=== PATIENT | male | born 1975 | race Caucasian/White ===

== ENCOUNTER 2019-06-30 12:57 | Emergency (ER) | payer OTHER ==
[2019-06-30] MEDS ORDERED: PROTONIX 40 MG IV IV ONE ×2 (14:13→14:23)
[2019-06-30] MEDS ORDERED: Hydromorphone 1 mg/ml Ampule IV ONE ×2 (14:13→18:39)
[2019-06-30] MEDS ORDERED: Sodium Chloride 0.9% 1000 ML 1,000 ML IV STA (14:13)
[2019-06-30] MEDS ORDERED: TORAdol 30 mg Injection IV ONE (14:13)
--- NOTE | 2019-06-30 14:13 | ERPHSYRPT ---
- History of Present Illness Patient Subjective Stated Complaint: Pt states "I was seen at the [facility] two weeks ago and they told me I had gout, I told them it was different then gout and my knees were swollen and I needed help and they told me to take the meds they gave me and I have not been able to move or walk for the last two days." Triage Nursing Assessment: Pt presented alert and oriented X 3, skin pwd. Pt gasping and grunting. When pt moves, he grunts and groans. PT grasping back and both knees. Physician History: Is a old male who is normally seen at the [facility] who presents with a history of gout and a diagnosis of gout made at the [facility]. He started with gout in the left foot that was treated with steroids allopurinol and tramadol and did improve. However he then developed pain in his left knee with swelling he has been unable to walk for 2 days that was diagnosed as gout as well. He now also has some pain in the left hip and lower back. Allergies/Adverse Reactions: No Known Drug Allergies Allergy (Verified 06/30/19 13:05) Home Medications: Colchicine 2.4 mg PO DAILY 06/30/19 [History] Prednisone 10 mg [Deltasone 10 mg] 10 mg PO UD 06/30/19 [History] Tramadol HCl 50 mg [Ultram 50 mg] 50 mg PO Q8H PRN PRN 06/30/19 [History] Hx Tetanus, Diphtheria Vaccination/Date Given: No Hx Influenza Vaccination/Date Given: Yes Hx Pneumococcal Vaccination/Date Given: No Immunizations Up to Date: Yes - Past Medical History Pertinent Past Medical History: Yes Neurological History: No Pertinent History Cardiac History: High Cholesterol, Hypertension Respiratory History: No Pertinent History Endocrine Medical History: No Pertinent History Musculoskeletal History: Fractures - Past Surgical History Past Surgical History: Yes Other Surgical History: jessica. right bicep - Social History Smoking Status: Former smoker Exposure to second hand smoke: Yes Drug Use: none Patient Lives Alone: No - Nursing Vital Signs Nursing Vital Signs: Initial Vital Signs Temperature 98.3 F 06/30/19 12:58 Pulse Rate 114 H 06/30/19 12:58 Respiratory Rate 24 06/30/19 12:58 Blood Pressure 157/121 06/30/19 12:58 O2 Sat by Pulse Oximetry 97 06/30/19 12:58 Pain Scale Pain Intensity [Right Knee] 8 Pain Intensity 2 - Physical Exam SpO2: 95 - Course Nursing assessment & vital signs reviewed: Yes Ordered Tests: Active Orders 24 hr Category Date Time Status IV Insertion STAT Care 06/30/19 14:13 Active CBC W DIFF Stat Lab 06/30/19 15:45 Completed CMP Stat Lab 06/30/19 15:45 Completed Lactic Acid Stat Lab 06/30/19 15:45 Received PROTIME WITH INR Stat Lab 06/30/19 15:45 Received SED RATE [Erythrocyte Sedimentation Rate] Stat Lab 06/30/19 15:45 Received UA W/RFX UR CULTURE Stat Lab 06/30/19 14:13 Uncollected Uric Acid Stat Lab 06/30/19 15:45 Received Medication Summary Discontinued Medications Generic Name Dose Route Start Last Admin Trade Name Freq PRN Reason Stop Dose Admin Hydromorphone HCl 2 mg 06/30/19 14:13 06/30/19 14:29 Hydromorphone 1 Mg/Ml Ampule IV 06/30/19 14:14 2 mg STAT ONE Administration Hydromorphone HCl Confirm 06/30/19 14:24 Hydromorphone 1 Mg/Ml Ampule Administered 06/30/19 14:25 Dose 2 mg .ROUTE .STK-MED ONE Sodium Chloride 1,000 mls @ 999 mls/hr 06/30/19 14:13 06/30/19 15:29 Sodium Chloride 0.9% 1000 Ml IV 06/30/19 15:13 Infused .Q1H1M STA Infusion Sodium Chloride Confirm 06/30/19 14:24 Sodium Chloride 0.9% 1000 Ml Administered 06/30/19 14:25 Dose 1,000 mls @ ud .ROUTE .STK-MED ONE Ketorolac Tromethamine 30 mg 06/30/19 14:13 06/30/19 14:29 Toradol 30 Mg Injection IV 06/30/19 14:14 30 mg STAT ONE Administration Ketorolac Tromethamine Confirm 06/30/19 14:23 Toradol 30 Mg Injection Administered 06/30/19 14:24 Dose 30 mg .ROUTE .STK-MED ONE Pantoprazole Sodium 40 mg 06/30/19 14:13 06/30/19 14:29 Protonix 40 Mg Iv IV 06/30/19 14:14 40 mg STAT ONE Administration Pantoprazole Sodium Confirm 06/30/19 14:23 Protonix 40 Mg Iv Administered 06/30/19 14:24 Dose 40 mg IV .STK-MED ONE Lab/Rad Data: Laboratory Result Diagrams 06/30/19 15:45 06/30/19 15:45 Laboratory Results 06/30/19 06/30/19 Range/Units 15:45 15:45 WBC 14.4 H (4.0-10.5) K/mm3 RBC 4.33 (4.1-5.6) M/mm3 Hgb 13.3 (12.5-18.0) gm/dl Hct 39.1 L (42-50) % MCV 90.3 (78-100) fl MCH 30.7 (26-32) pg MCHC 34.0 (32-36) g/dl RDW 13.2 (11.5-14.0) % Plt Count 243 (150-450) K/mm3 MPV 9.7 (7.5-11.0) fl Gran % 83.0 H (36.0-66.0) % Eos # (Auto) 0.01 (0-0.5) Absolute Lymphs (auto) 0.88 L (1.0-4.6) Absolute Monos (auto) 1.54 H (0.0-1.3) Lymphocytes % 6.1 L (24.0-44.0) % Monocytes % 10.7 (0.0-12.0) % Eosinophils % 0.1 (0.00-5.0) % Basophils % 0.1 (0.0-0.4) % Absolute Granulocytes 11.96 H (1.4-6.9) Basophils # 0.02 (0-0.4) Sodium 133 L (137-145) mmol/L Potassium 4.4 (3.5-5.1) mmol/L Chloride 102 (98-107) mmol/L Carbon Dioxide 23 (22-30) mmol/L Anion Gap 13.4 (5-15) MEQ/L BUN 24 H (9-20) mg/dL Creatinine 1.07 (0.66-1.25) mg/dL Estimated GFR > 60.0 ML/MIN Glucose 125 H (74-106) mg/dL Calcium 9.1 (8.4-10.2) mg/dL Total Bilirubin 1.20 (0.2-1.3) mg/dL AST 37 (17-59) U/L ALT 51 H (0-50) U/L Alkaline Phosphatase 140 H (38-126) U/L Serum Total Protein 7.8 (6.3-8.2) g/dL Albumin 4.1 (3.5-5.0) g/dL Slides for Path Review YES - Progress Progress: unchanged - Departure Departure Disposition: Transfer (Patient will transfer to the [facility] for continuity of care purposes he will be admitted at the [facility] to Dr. [place]) Clinical Impression: Gout Condition: Stable Critical Care Time: No Referrals: FLORENTINO BRITO MD [NON-STAFF PHY W/O PRIVILEGES] -
[2019-06-30] MEDS ORDERED: TORAdol 30 mg Injection ONE (14:23)
[2019-06-30] MEDS ORDERED: Sodium Chloride 0.9% 1000 ML 1,000 ML ONE (14:24)
[2019-06-30] MEDS ORDERED: Hydromorphone 1 mg/ml Ampule ONE ×2 (14:24→18:41)
[2019-06-30 16:14] LABS: Absolute Neutrophil Ct (ANC) 11.96 (1.4-6.9); BASOPHIL % 0.1 % (0.0-0.4); Basophil (Absolute #) 0.02 (0-0.4); Eosinophil % 0.1 % (0.00-5.0); Eosinophil (Absolute #) 0.01 (0-0.5); Hematocrit 39.1 % (42-50); Hemoglobin 13.3 gm/dl (12.5-18.0); Lymphocyte (Absolute #) 0.88 (1.0-4.6); Lymphocytes % 6.1 % (24.0-44.0); Mean Cell Volume 90.3 fl (78-100); Mean Corpuscular Hemoglobin 30.7 pg (26-32); Mean Platelet Volume 9.7 fl (7.5-11.0); Monocyte (Absolute #) 1.54 (0.0-1.3); Monocytes % 10.7 % (0.0-12.0); Platelet Count 243 K/mm3 (150-450); Red Blood Count 4.33 M/mm3 (4.1-5.6); Red Cell Distribution Width 13.2 % (11.5-14.0); White Blood Count 14.4 K/mm3 (4.0-10.5)
[2019-06-30 16:17] LABS: INR 1.33 (0.8-3.0); PROTIME 15.1 SECONDS (8.83-12.87)
[2019-06-30 16:21] LABS: ALBUMIN 4.1 g/dL (3.5-5.0); ALKALINE PHOSPHATASE 140 U/L (38-126); ANION GAP 13.4 MEQ/L (5-15); BLOOD UREA NITROGEN 24 mg/dL (9-20); CHLORIDE 102 mmol/L (98-107); Calcium 9.1 mg/dL (8.4-10.2); Carbon Dioxide 23 mmol/L (22-30); Creatinine 1 1.07 mg/dL (0.66-1.25); Glucose 125 mg/dL (74-106); Potassium 4.4 mmol/L (3.5-5.1); SGOT/AST 37 U/L (17-59); SGPT/ALT 51 U/L (0-50); SODIUM 133 mmol/L (137-145); Total Protein 7.8 g/dL (6.3-8.2)
[2019-06-30 16:35] LABS: Slide Review 1 YES
[2019-06-30 17:34] LABS: Appearance CLEAR (CLEAR); Bilirubin NEGATIVE (NEGATIVE); Blood NEGATIVE Ery/ul (0-5); Glucose NEGATIVE (NEGATIVE); Ketones NEGATIVE (NEGATIVE); Leukocyte Esterase NEGATIVE (NEGATIVE); Mucus SLIGHT /HPF (NEGATIVE); Nitrite NEGATIVE (NEGATIVE); Protein,Urine Dip NEGATIVE (Negative); Specific Gravity 1.023 (1.005-1.025); Urobilinogen 2 mg/dL (0-1); WBC 0-2 /HPF (0-5)
[2019-06-30 18:49] VITALS: BP 118/70; PULSE 90; O2SAT 98
== END 2019-06-30 19:11 | disposition short-term general hospital (02) ==
LOC: ED 12:57
DX: M10.9 Gout, unspecified (principal); M25.552 Pain in left hip; M54.5 Low back pain; Z79.899 Other long term (current) drug therapy; E78.00 Pure hypercholesterolemia, unspecified; I10 Essential (primary) hypertension
CPT/HCPCS: 36000; 36415; 80053; 81001; 83605; 84550; 85025; 85610; 85652; 96360; 96374; 96375; 96376; 99285; J1170; J1885

== ENCOUNTER 2022-02-08 10:23 | Emergency (ER) | payer OTHER ==
[2022-02-08] MEDS ORDERED: CLONIDINE 0.1 MG TABLET PO ONE (10:34)
[2022-02-08] MEDS ORDERED: NORVASC 5 MG PO ONE (10:34)
[2022-02-08] MEDS ORDERED: CLONIDINE 0.1 MG TABLET ONE (10:38)
[2022-02-08] MEDS ORDERED: NORVASC 5 MG ONE (10:39)
[2022-02-08] MEDS ORDERED: Sodium Chloride 0.9% 1000 ML 1,000 ML ONE (10:40)
--- NOTE | 2022-02-08 10:44 | ERPHSYRPT ---
- History of Present Illness Time Seen by Provider: 02/08/22 10:38 Source: patient, family Exam Limitations: no limitations Physician History: Patient is a 46-year-old male who presents with a complaint of high blood pressure readings at home. He has been as high as 174/117 at home. He is on hydrochlorothiazide for his blood pressure which he admits he is not particu larly taking on a regular basis. He is only complaining of any discomfort is a bad headache since last night. He admits that yesterday he had a markedly increased salt intake he was drinking beer tomato juice and salt throughout the day yesterday. Timing/Duration: yesterday Activities at Onset: none Quality: other (Severe headache) Modifying Factors: Improves With: nothing Nitro Today/Relief: no nitro taken today Aspirin Treatment Today: no aspirin today Associated Symptoms: headaches Prior Chest Pain/Cardiac Workup: no prior cardiac workup Allergies/Adverse Reactions: [id number] Reductase Inhibitor Allergy (Verified 02/08/22 10:29) Home Medications: hydroCHLOROthiazide [Hydrochlorothiazide] 1 tab PO DAILY 02/08/22 [History] Hx Tetanus, Diphtheria Vaccination/Date Given: No Hx Influenza Vaccination/Date Given: Yes Hx Pneumococcal Vaccination/Date Given: No - Review of Systems Constitutional: No Fever, No Chills Eyes: No Symptoms Ears, Nose, & Throat: No Symptoms Respiratory: No Cough, No Dyspnea Cardiac: No Chest Pain, No Edema, No Syncope Abdominal/Gastrointestinal: No Abdominal Pain, No Nausea, No Vomiting, No Diarrhea Genitourinary Symptoms: No Dysuria Musculoskeletal: No Back Pain, No Neck Pain Skin: No Rash Neurological: Headache, No Dizziness, No Focal Weakness, No Sensory Changes Psychological: No Symptoms Endocrine: No Symptoms All Other Systems: Reviewed and Negative - Past Medical History Pertinent Past Medical History: Yes Neurological History: No Pertinent History Cardiac History: High Cholesterol, Hypertension Respiratory History: No Pertinent History Endocrine Medical History: No Pertinent History Musculoskeletal History: Fractures - Past Surgical History Past Surgical History: Yes Other Surgical History: jessica. right bicep - Social History Smoking Status: Former smoker Exposure to second hand smoke: Yes Drug Use: none Patient Lives Alone: No - Nursing Vital Signs Nursing Vital Signs: Initial Vital Signs Temperature 96.9 F 02/08/22 10:35 Pulse Rate 86 02/08/22 10:35 Respiratory Rate 18 02/08/22 10:35 Blood Pressure 168/109 02/08/22 10:35 O2 Sat by Pulse Oximetry 98 02/08/22 10:35 Pain Scale Pain Intensity 5 - Physical Exam General Appearance: no apparent distress, alert Eye Exam: PERRL/EOMI, eyes nml inspection Ears, Nose, Throat Exam: normal ENT inspection, moist mucous membranes Neck Exam: normal inspection, non-tender, supple Respiratory Exam: normal breath sounds, lungs clear, No respiratory distress Cardiovascular Exam: regular rate/rhythm, normal heart sounds, No edema Gastrointestinal/Abdomen Exam: soft, No tenderness, No mass Back Exam: normal inspection, No CVA tenderness, No vertebral tenderness Extremity Exam: normal inspection, normal range of motion Neurologic Exam: alert, oriented x 3, cooperative, normal mood/affect, nml cerebellar function, sensation nml, No motor deficits Skin Exam: normal color, warm, dry Lymphatic Exam: No adenopathy - Course EKG Interpreted by Me: RATE ([id number]), Sinus Rhythm, Left [place] Deviation, NORMAL INTERVALS, Non-specific ST Changes - Radiology Exams Chest X-ray Interpretation: Interpreted by me, Negative Ordered Tests: Active Orders 24 hr Category Date Time Status EKG-ER Only STAT Care 02/08/22 10:34 Active IV Insertion STAT Care 02/08/22 10:34 Active CHEST 1 VIEW (PORTABLE) Stat Exams 02/08/22 10:35 Taken CBC W DIFF Stat Lab 02/08/22 10:35 Received CMP Stat Lab 02/08/22 10:35 Completed MAGNESIUM Stat Lab 02/08/22 10:35 Completed NT PRO BNP Stat Lab 02/08/22 10:35 Completed TROPONIN Q4H Lab 02/08/22 10:35 Completed TROPONIN Q4H Lab 02/08/22 14:45 Ordered TROPONIN Q4H Lab 02/08/22 18:45 Ordered UA W/RFX CULTURE Stat Lab 02/08/22 10:38 Completed Urine Triage Profile Stat Lab 02/08/22 10:38 Completed Medication Summary Generic Name Dose Route Start Last Admin Trade Name Freq PRN Reason Stop Dose Admin Sodium Chloride 1,000 mls @ 50 mls/hr 02/08/22 10:45 02/08/22 10:40 Sodium Chloride 0.9% 1000 Ml IV 03/10/22 10:44 50 mls/hr .Q20H JESSICA Administration Losartan Potassium 50 mg 02/09/22 10:00 02/08/22 10:59 Losartan Potassium 50 Mg Tablet PO 03/11/22 09:59 50 mg DAILY JESSICA Administration Discontinued Medications Generic Name Dose Route Start Last Admin Trade Name Doreen PRN Reason Stop Dose Admin Amlodipine Besylate 5 mg 02/08/22 10:34 02/08/22 10:39 Amlodipine Besylate 5 Mg Tablet PO 02/08/22 10:35 5 mg STAT ONE Administration Amlodipine Besylate Confirm 02/08/22 10:39 Amlodipine Besylate 5 Mg Tablet Administered 02/08/22 10:40 Dose 5 mg .ROUTE .STK-MED ONE Clonidine 0.1 mg 02/08/22 10:34 02/08/22 10:39 Clonidine Hcl 0.1 Mg Tablet PO 02/08/22 10:35 0.1 mg STAT ONE Administration Clonidine Confirm 02/08/22 10:38 Clonidine Hcl 0.1 Mg Tablet Administered 02/08/22 10:39 Dose 0.1 mg .ROUTE .STK-MED ONE Lab/Rad Data: Laboratory Result Diagrams 02/08/22 10:35 Laboratory Results 02/08/22 02/08/22 02/08/22 Range/Units 10:38 10:38 10:35 Sodium (137-145) mmol/L Potassium (3.5-5.1) mmol/L Chloride (98-107) mmol/L Carbon Dioxide (22-30) mmol/L Anion Gap (5-15) MEQ/L BUN (9-20) mg/dL Creatinine (0.66-1.25) mg/dL Estimated GFR ML/MIN Glucose (74-106) mg/dL Calcium (8.4-10.2) mg/dL Magnesium (1.6-2.3) mg/dL Total Bilirubin (0.2-1.3) mg/dL AST (17-59) U/L ALT (0-50) U/L Alkaline Phosphatase (38-126) U/L Troponin I < 0.012 (0.000-0.034) ng/mL NT-Pro-B Natriuret Pep (0-450) pg/mL Serum Total Protein (6.3-8.2) g/dL Albumin (3.5-5.0) g/dL Urinalys Dipstick Clnc MAIN LAB Urine Color YELLOW (YELLOW) Urine Appearance CLEAR (CLEAR) Urine pH 7.5 (5-6) Ur Specific [place] 1.015 (1.005-1.025) POC Urine Protein Conf NEGATIVE (Negative) Urine Ketones NEGATIVE (NEGATIVE) Urine Nitrite NEGATIVE (NEGATIVE) Urine Bilirubin NEGATIVE (NEGATIVE) Urine Urobilinogen 0.2 (0-1) mg/dL Urine Leukocytes NEGATIVE (NEGATIVE) Urine WBC (Auto) NONE (0-5) /HPF Urine RBC (Auto) NONE (0-2) /HPF U Epithel Cells (Auto) NONE (FEW) /HPF Urine Bacteria (Auto) NONE (NEGATIVE) /HPF Urine RBC NEGATIVE (0-5) Tree/ul Urine Mucus (Auto) SLIGHT (NEGATIVE) /HPF Ur Culture Indicated? NO Urine Glucose NEGATIVE (NEGATIVE) mg/dL Urine Opiates Level NEGATIVE (NEGATIVE) Ur Methadone NEGATIVE (NEGATIVE) Urine Barbiturates NEGATIVE (NEGATIVE) Ur Phencyclidine (PCP) NEGATIVE (NEGATIVE) Urine Amphetamine NEGATIVE (NEGATIVE) U Benzodiazepine Level NEGATIVE (NEGATIVE) Urine Cocaine NEGATIVE (NEGATIVE) Urine Marijuana (THC) NEGATIVE (NEGATIVE) 02/08/22 Range/Units 10:35 Sodium 135 L (137-145) mmol/L Potassium 4.4 (3.5-5.1) mmol/L Chloride 103 (98-107) mmol/L Carbon Dioxide 22 (22-30) mmol/L Anion Gap 13.8 (5-15) MEQ/L BUN 14 (9-20) mg/dL Creatinine 0.86 (0.66-1.25) mg/dL Estimated GFR > 60.0 ML/MIN Glucose 116 H (74-106) mg/dL Calcium 9.4 (8.4-10.2) mg/dL Magnesium 2.0 (1.6-2.3) mg/dL Total Bilirubin 0.60 (0.2-1.3) mg/dL AST 88 H (17-59) U/L ALT 89 H (0-50) U/L Alkaline Phosphatase 102 (38-126) U/L Troponin I (0.000-0.034) ng/mL NT-Pro-B Natriuret Pep 26.9 (0-450) pg/mL Serum Total Protein 8.2 (6.3-8.2) g/dL Albumin 4.8 (3.5-5.0) g/dL Urinalys Dipstick Clnc Urine Color (YELLOW) Urine Appearance (CLEAR) Urine pH (5-6) Ur Specific [place] (1.005-1.025) POC Urine Protein Conf (Negative) Urine Ketones (NEGATIVE) Urine Nitrite (NEGATIVE) Urine Bilirubin (NEGATIVE) Urine Urobilinogen (0-1) mg/dL Urine Leukocytes (NEGATIVE) Urine WBC (Auto) (0-5) /HPF Urine RBC (Auto) (0-2) /HPF U Epithel Cells (Auto) (FEW) /HPF Urine Bacteria (Auto) (NEGATIVE) /HPF Urine RBC (0-5) Tree/ul Urine Mucus (Auto) (NEGATIVE) /HPF Ur Culture Indicated? Urine Glucose (NEGATIVE) mg/dL Urine Opiates Level (NEGATIVE) Ur Methadone (NEGATIVE) Urine Barbiturates (NEGATIVE) Ur Phencyclidine (PCP) (NEGATIVE) Urine Amphetamine (NEGATIVE) U Benzodiazepine Level (NEGATIVE) Urine Cocaine (NEGATIVE) Urine Marijuana (THC) (NEGATIVE) - Progress Progress: improved Air Movement: good Blood Culture(s) Obtained: No Antibiotics given: No - Departure Departure Disposition: Home Clinical Impression: Hypertension Condition: Stable Critical Care Time: No Referrals: TOD MCCRAY [NON-STAFF PHY W/O PRIVILEGES] - Follow up/PCP as directed Instructions: Malignant Hypertension (DC) Prescriptions: Losartan Potassium 50 mg [Cozaar 50 MG] 50 mg PO DAILY 30 Days #30 tablet Hydrochlorothiazide 25 mg [hydroDIURIL 25 MG] 25 mg PO DAILY 30 Days #30 tablet
[2022-02-08] MEDS ORDERED: Sodium Chloride 0.9% 1000 ML 1,000 ML IV SCH (10:45)
[2022-02-08 11:14] LABS: Amphetamine,Urine NEGATIVE (NEGATIVE); Barbiturate,Urine NEGATIVE (NEGATIVE); Benzodiazepine,Urine NEGATIVE (NEGATIVE); Cocaine,Urine NEGATIVE (NEGATIVE); Methadone,Urine NEGATIVE (NEGATIVE); Opiate,Urine NEGATIVE (NEGATIVE); PCP,Urine NEGATIVE (NEGATIVE); THC,Urine NEGATIVE (NEGATIVE)
[2022-02-08 11:15] LABS: ALBUMIN 4.8 g/dL (3.5-5.0); ALKALINE PHOSPHATASE 102 U/L (38-126); ANION GAP 13.8 MEQ/L (5-15); BLOOD UREA NITROGEN 14 mg/dL (9-20); CHLORIDE 103 mmol/L (98-107); Calcium 9.4 mg/dL (8.4-10.2); Carbon Dioxide 22 mmol/L (22-30); Creatinine 1 0.86 mg/dL (0.66-1.25); EST GLOMERULAR FILTRATION RATE > 60.0 ML/MIN; Glucose 116 mg/dL (74-106); NT PRO BNP 26.9 pg/mL (0-450); Potassium 4.4 mmol/L (3.5-5.1); SGOT/AST 88 U/L (17-59); SGPT/ALT 89 U/L (0-50); SODIUM 135 mmol/L (137-145); Total Protein 8.2 g/dL (6.3-8.2)
[2022-02-08 11:18] LABS: Appearance CLEAR (CLEAR); Bilirubin NEGATIVE (NEGATIVE); Glucose NEGATIVE (NEGATIVE); Ketones NEGATIVE (NEGATIVE); Mucus SLIGHT /HPF (NEGATIVE)
[2022-02-08 11:19] LABS: Dipstick done @ ? MAIN LAB; Nitrite NEGATIVE (NEGATIVE); Ph 7.5 (5-6); Protein,Urine Dip NEGATIVE (Negative); RBC NEGATIVE Ery/ul (0-5); Specific Gravity 1.015 (1.005-1.025); Urine Cultured Indicated? NO; Urobilinogen 0.2 mg/dL (0-1)
[2022-02-08 11:29] VITALS: O2SAT 94
[2022-02-08 11:53] LABS: Absolute Neutrophil Ct (ANC) 2.36 x10^3/uL (1.4-6.9); Basophil (Absolute #) 0.05 x10^3/uL (0-0.4); Eosinophil % 5.4 % (0.00-5.0); Eosinophil (Absolute #) 0.29 x10^3/uL (0-0.5); Hemoglobin 15.2 g/dL (12.5-18.0); Lymphocyte (Absolute #) 2.14 x10^3/uL (1.0-4.6); Lymphocytes % 39.5 % (24.0-44.0); Mean Cell Volume 89.6 fL (78-100); Mean Corpuscular Hemoglobin 30.3 pg (26-32); Mean Corpuscular Hgb Concent. 33.8 g/dL (32-36); Mean Platelet Volume 10.6 fL (7.5-11.0); Monocyte (Absolute #) 0.56 x10^3/uL (0.0-1.3); Monocytes % 10.3 % (0.0-12.0); Neutrophil % 43.5 % (36.0-66.0); Platelet Count 148 x10^3/uL (150-450); Red Blood Count 5.02 x10^6/uL (4.1-5.6); Red Cell Distribution Width 12.1 % (11.5-14.0); White Blood Count 5.4 x10^3/uL (4.0-10.5)
[2022-02-08 12:31] VITALS: BP 150/95; PULSE 72
--- NOTE | 2022-02-08 19:18 | XRAY ---
Indication: Hypertension. Comparison: None Portable chest demonstrates normal heart and lungs. Bony thorax intact with minimal dextroscoliosis.
[2022-02-09] MEDS ORDERED: Cozaar 50 MG PO SCH (10:00)
== END 2022-02-08 13:05 | disposition home or self-care (01) ==
LOC: ED 10:23
DX: I10 Essential (primary) hypertension (principal); R51.9 Headache, unspecified; E78.5 Hyperlipidemia, unspecified; Z79.899 Other long term (current) drug therapy
CPT/HCPCS: 36000; 36415; 71045; 80053; 80307; 81015; 83735; 83880; 84484; 85025; 93005; 99284; A9270-GY

== ENCOUNTER 2022-06-25 09:47 | Emergency (ER) | payer OTHER ==
[2022-06-25] MEDS ORDERED: DECADRON 10MG INJ. IM ONE (10:08)
[2022-06-25] MEDS ORDERED: TORAdol 30 mg Injection IM ONE (10:08)
--- NOTE | 2022-06-25 10:15 | ERPHSYRPT ---
- History of Present Illness Time Seen by Provider: 06/25/22 10:16 Source: patient Exam Limitations: no limitations Patient Subjective Stated Complaint: Pt states "I was working on a car in [place] and I am not sure if I hit it or injured it but I have horrible pain in my right wrist and it is swollen. I went to the [facility] and they are trying to treat me for gout but the pain is still there." Triage Nursing Assessment: PT presented alert and oriented X 3, skin pwd. PT ambulates with an upright steady gait, able to speak in clear full sentences. Pt right wrist slightly swollen and tender. Physician History: Patient is a 47-year-old male presents to our ED for evaluation of pain to his right wrist. Patient was working on a vehicle on Thursday 3 days ago. Patient injured his wrist while using a screwdriver. Patient went to the [facility] yesterday. Patient was evaluated. X-rays were obtained. No fractures or dislocations per patient. Patient has a history of gout. [facility]. Patient was started indomethacin and colchicine. Patient was issued a wrist splint for pain control and comfort. Patient is not wearing his wrist splint as he states the wrist but they gave him is too small. No interval injuries. No fever. Pain described as an ache that is localized to the right forearm musculature as well as wrist. No wrist pain shoulder pain. Patient otherwise feels well. He voices no other complaints or concerns at this time. Portions of this note were created with voice recognition technology. There may be grammatical, spelling, punctuation or sound alike errors Occurred: days ago (3 days ago) Method of Injury: other (Working on vehicle) Quality: constant Severity of Pain-Max: moderate Severity of Pain-Current: mild Extremities Pain Location: wrist: right Modifying Factors: Improves With: movement Associated Symptoms: none, No fever Allergies/Adverse Reactions: [id number] Reductase Inhibitor Allergy (Verified 02/08/22 10:29) Home Medications: hydroCHLOROthiazide [Hydrochlorothiazide] 1 tab PO DAILY 02/08/22 [History] Hx Tetanus, Diphtheria Vaccination/Date Given: No Hx Influenza Vaccination/Date Given: Yes Hx Pneumococcal Vaccination/Date Given: No Immunizations Up to Date: Yes Travel Risk - International Travel Have you traveled outside of the country in past 3 weeks: No - Coronavirus Screening Are you exhibiting any of the following symptoms?: No Close contact with a COVID-19 positive Pt in past 14-21 Days: No - Vaccine Status Have you recieved a Covid-19 vaccination: No - Review of Systems Constitutional: No Symptoms, No Fever, No Chills Eyes: No Symptoms Ears, Nose, & Throat: No Symptoms Respiratory: No Symptoms, No Cough, No Dyspnea Cardiac: No Symptoms, No Chest Pain, No Edema, No Syncope Abdominal/Gastrointestinal: No Symptoms, No Abdominal Pain, No Nausea, No Vomiting, No Diarrhea Genitourinary Symptoms: No Symptoms, No Dysuria Musculoskeletal: No Symptoms, No Back Pain, No Neck Pain Skin: No Symptoms, No Rash Neurological: No Symptoms, No Dizziness, No Focal Weakness, No Sensory Changes Psychological: No Symptoms Endocrine: No Symptoms Hematologic/Lymphatic: No Symptoms Immunological/Allergic: No Symptoms All Other Systems: Reviewed and Negative - Past Medical History Pertinent Past Medical History: Yes Neurological History: No Pertinent History Cardiac History: High Cholesterol, Hypertension Respiratory History: No Pertinent History Endocrine Medical History: No Pertinent History Musculoskeletal History: Fractures - Past Surgical History Past Surgical History: Yes Other Surgical History: jessica. right bicep - Social History Smoking Status: Former smoker Exposure to second hand smoke: Yes Drug Use: none Patient Lives Alone: No - Nursing Vital Signs Nursing Vital Signs: Initial Vital Signs Temperature 97.7 F 06/25/22 09:53 Pulse Rate 99 H 06/25/22 09:53 Respiratory Rate 22 06/25/22 09:53 Blood Pressure 157/99 06/25/22 09:53 Pain Scale Pain Intensity 6 - Physical Exam General Appearance: no apparent distress, alert Eyes, Ears, Nose, Throat Exam: moist mucous membranes Neck Exam: non-tender, supple Cardiovascular/Respiratory Exam: chest non-tender, normal breath sounds, regular rate/rhythm, no respiratory distress Abdominal Exam: non-tender, soft, No guarding Back Exam: normal inspection, No vertebral tenderness Shoulder Exam: normal inspection, non-tender, no evidence of injury, normal ROM Elbow/Forearm Exam: normal inspection, non-tender, no evidence of injury, normal ROM Wrist Exam: pain (Right wrist pain, some tenderness to palpation at the distal forearm just proximal to the wrist on the dorsal side. Overlying soft tissue intact. The involved extremity is neurovascular intact distally. Compartments are soft. Cap refill less than 2 seconds.), soft tissue tenderness (No cellulitis. No lymphangitis. No axillary lymphadenopathy) Hand Exam: normal inspection, non-tender, no evidence of injury, normal ROM Neuro/Tendon Exam: normal sensation, normal motor functions Mental Status Exam: alert, oriented x 3, cooperative Skin Exam: normal color, warm, dry SpO2 Interpretation: normal SpO2: 98 O2 Delivery: Room Air - Course Nursing assessment & vital signs reviewed: Yes - Radiology Exams Wrist X-ray Interpretation: Teleradiologist Report (Mild widening of the scaphoid lunate interval favoring ligamentous tear) Forearm X-ray Interpretation: Interpreted by me (No fracture or dislocation. Chronic changes) Ordered Tests: Active Orders 24 hr Category Date Time Status FOREARM Stat Exams 06/25/22 10:25 Completed WRIST (MIN 3 VIEWS) Stat Exams 06/25/22 10:25 Completed Medication Summary Discontinued Medications Generic Name Dose Route Start Last Admin Trade Name Freq PRN Reason Stop Dose Admin Dexamethasone Sodium Phosphate 10 mg 06/25/22 10:08 06/25/22 10:23 Dexamethasone Sod Phosphate 10 Mg/Ml IM 06/25/22 10:09 10 mg STAT ONE Administration Dexamethasone Sodium Phosphate Confirm 06/25/22 10:17 Dexamethasone Sod Phosphate 10 Mg/Ml Administered 06/25/22 10:18 Dose 10 mg .ROUTE .STK-MED ONE Dexamethasone Sodium Phosphate Confirm 06/25/22 10:22 Dexamethasone Sod Phosphate 10 Mg/Ml Administered 06/25/22 10:23 Dose 10 mg .ROUTE .STK-MED ONE Ketorolac Tromethamine 60 mg 06/25/22 10:08 06/25/22 10:24 Ketorolac Tromethamine 30 Mg/Ml Inj IM 06/25/22 10:09 60 mg STAT ONE Administration Ketorolac Tromethamine Confirm 06/25/22 10:17 Ketorolac Tromethamine 30 Mg/Ml Inj Administered 06/25/22 10:18 Dose 30 mg .ROUTE .STK-MED ONE Ketorolac Tromethamine Confirm 06/25/22 10:22 Ketorolac Tromethamine 30 Mg/Ml Inj Administered 06/25/22 10:23 Dose 30 mg .ROUTE .STK-MED ONE Ketorolac Tromethamine Confirm 06/25/22 10:24 Ketorolac Tromethamine 30 Mg/Ml Inj Administered 06/25/22 10:25 Dose 30 mg .ROUTE .Teleus ONE - Progress Progress: improved Progress Note: Patient is a 47-year-old male presents to emergency department for evaluation of pain to his right wrist. Patient injured his wrist while working on his vehicle. Patient was turning a screwdriver at that time. Patient was diagnosed with a gout flareup at the [facility]. Patient was issued a wrist splint for pain control however patient is not wearing his wrist splint because it does not fit well. Physical exam reveals some pain at the wrist itself. No signs of infection no signs of trauma. No signs of fever. The involved extremity neurovascular intact distally. Injury occurred 3 days ago. Patient's complaint is acute. Complexity of patient complaint is moderate. No significant comorbidities to contribute the patient's symptomology. Test ordered include x- ray of the wrist and right forearm. [facility] a significant delay however because we will be sending patient to our orthopedic clinic we elected to perform our own imaging studies. Our imaging study shows a scapholunate widening suggesting of a possible ligamentous tear. I reviewed the [facility]. No fractures or dislocations. No mention of the scapholunate disassociation observed in our x-ray. We provided patient with a good fitting wrist splint. A referral to our orthopedic clinic was made. Patient to [facility]-up in our [facility] tomorrow. Patient agrees to follow-up as planned. Level of EM service provided was moderate. No social determinants of health identified to preclude patient's plan of care. Complexity of the problem addressed was low. Complexity of data reviewed was moderate. Risk of complication and or risk of morbidity/mortality patient management was moderate. Patient to continue his home medications as per his primary care doctor at the [facility]. No critical care time. 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 Patient received a dose of Toradol as well as a dose of Decadron for pain control. No indication for prescription. . Time spent during discharge is approximately 10 minutes. Please review the diagnosis section at the end of this chart for details. Portions of this note were created with voice recognition technology. There may be grammatical, spelling, punctuation or sound alike errors 06/25/22 11:21 Counseled pt/family regarding: diagnosis, need for follow-up, rad results Medical Desision Making - Diagnostic Testing Diagnostic Testing: Diagnostic tests were ordered,analyzed, and reviewed by me and used in my medical decision making for this patient. Radiologic studies (if ordered) were read by me initially then discussed with the radiologist . - Departure Departure Disposition: Home Clinical Impression: Wrist pain, Muscle strain, Torn ligament of hand Condition: Stable Critical Care Time: No Referrals: [facility]OSPITAL,'S [Primary Care Provider] - Follow up/PCP as directed Additional Instructions: Discharge/Care Plan BABAREAMON Ga was seen on 06/25/22 in the Emergency Room. The patient was counseled regarding Diagnosis,Lab results, Imaging studies, need for follow up and when to return to the Emergency Room. Prescriptions given: Discharge Note I have spoken with the patient and/or caregivers. I have explained the patient's condition, diagnosis and treatment plan based on the information available to me at this time. I have answered the patient's and/or caregiver's questions and addressed any concerns. The patient and/or caregivers have as good understanding of the patient's diagnosis, condition and treatment plan as can be expected at this point. The vital signs have been stable. The patient's condition is stable and appropriate for discharge from the emergency department. The patient will pursue further outpatient evaluation with the primary care physician or other designated or consulting physician as outlined in the discharge instructions. The patient and/or caregivers are agreeable to this plan of care and follow-up instructions have been explained in detail. The patient and/or caregivers have received these instruction. The patient/and or caregivers are aware that any significant change in condition or worsening of symptoms should prompt an immediate return to this or the closest emergency department or call 911. Outpatient Orders: Ortho Referral Time Frame: 1 Day, Facility: [facility]. Hosp, Location[facility]
[2022-06-25] MEDS ORDERED: DECADRON 10MG INJ. ONE ×2 (10:17→10:22)
[2022-06-25] MEDS ORDERED: TORAdol 30 mg Injection ONE ×3 (10:17→10:24)
[2022-06-25 10:24] VITALS: O2SAT 98
[2022-06-25 10:50] VITALS: BP 150/92; PULSE 96
--- NOTE | 2022-06-25 11:13 | XRAY ---
Indication: Pain and swelling. No known injury. Comparison: None 2 view right forearm demonstrates remote proximal radial shaft surgery as evidenced by tunnel radiolucency with orthopedic button. No other bony, articular, or soft tissue abnormalities. Wrist reported separately.
--- NOTE | 2022-06-25 11:13 | XRAY ---
Pain and swelling. No known injury. Comparison: None 3 view right wrist demonstrates radiocarpal joint space narrowing, mild widened scapholunate interval favoring underlying ligamentous tear, and minimal 1st metacarpal multangular degenerative changes. No other bony, articular, or soft tissue abnormalities.
== END 2022-06-25 11:38 | disposition home or self-care (01) ==
LOC: ED 09:47
DX: S63.91XA Sprain of unspecified part of right wrist and hand, initial encounter (principal); S66.911A Strain of unspecified muscle, fascia and tendon at wrist and hand level, right hand, initial encounter; X50.9XXA Other and unspecified overexertion or strenuous movements or postures, initial encounter; M25.531 Pain in right wrist; E78.5 Hyperlipidemia, unspecified; I10 Essential (primary) hypertension; Z79.899 Other long term (current) drug therapy; Z28.310 Unvaccinated for COVID-19
CPT/HCPCS: 73090; 73110; 96372; 99283; A4570; J1100; J1885

== ENCOUNTER 2022-07-05 10:32 | Emergency (ER) | payer OTHER ==
--- NOTE | 2022-07-05 10:39 | ERPHSYRPT ---
- History of Present Illness Time Seen by Provider: 07/05/22 10:39 Source: patient Exam Limitations: no limitations Physician History: This is a right-handed 47-year-old obese white male who 2 weeks ago was working on his car when he felt a sudden pain in his right hand and wrist. He was seen in our emergency department 10 days ago and was found to have a right wrist ligament tear with degenerative changes in his right wrist and hand. Patient was given an injection of Toradol and dexamethasone in the emergency department and patient states his symptoms improved until 2 to 3 days ago. Patient has not reinjured the right hand or wrist but, 2 to 3 days ago, there was increased swelling and pain. Patient was instructed to follow-up in the [facility] orthopedic clinic the next day following that visit. However, the [facility] refused to allow him to be seen in that outpatient clinic and he was to follow-up with [facility] orthopedic clinic. Patient has an MRI scheduled to have his right wrist and hand on July 21, 2022. Additionally, the patient is out of his hydrochlorothiazide prescription. He was told that his prescription would be sent to him in the mail but he has yet to receive this medication and he would like a refill of at least a portion of the medication. Patient has a history of recurrent gout and hypertension. Occurred: other (2 weeks ago) Method of Injury: other (No new injury) Quality: constant, aching Severity of Pain-Max: mild (To moderate) Severity of Pain-Current: mild (To moderate) Extremities Pain Location: wrist: right, hand: right Modifying Factors: Improves With: movement Associated Symptoms: other (Patient denies cough. Patient denies shortness of breath), No dyspnea, No short of breath Allergies/Adverse Reactions: [id number] Reductase Inhibitor Allergy (Verified 07/05/22 10:45) Home Medications: hydroCHLOROthiazide [Hydrochlorothiazide] 1 tab PO DAILY 02/08/22 [History] Hx Tetanus, Diphtheria Vaccination/Date Given: No Hx Influenza Vaccination/Date Given: Yes Hx Pneumococcal Vaccination/Date Given: No Travel Risk - International Travel Have you traveled outside of the country in past 3 weeks: No - Coronavirus Screening Are you exhibiting any of the following symptoms?: No Close contact with a COVID-19 positive Pt in past 14-21 Days: No - Vaccine Status Have you recieved a Covid-19 vaccination: No - Review of Systems Constitutional: No Symptoms Eyes: No Symptoms Ears, Nose, & Throat: No Symptoms Respiratory: No Symptoms Cardiac: No Symptoms Abdominal/Gastrointestinal: No Symptoms Genitourinary Symptoms: No Symptoms Musculoskeletal: Other (Pain and swelling right hand and wrist) Skin: No Symptoms Neurological: No Symptoms Psychological: No Symptoms Endocrine: No Symptoms Hematologic/Lymphatic: No Symptoms Immunological/Allergic: No Symptoms All Other Systems: Reviewed and Negative - Past Medical History Pertinent Past Medical History: Yes Neurological History: No Pertinent History Cardiac History: High Cholesterol, Hypertension Respiratory History: No Pertinent History Endocrine Medical History: No Pertinent History Musculoskeletal History: Fractures - Past Surgical History Past Surgical History: Yes Other Surgical History: jessica. right bicep - Social History Smoking Status: Former smoker Exposure to second hand smoke: Yes Drug Use: none Patient Lives Alone: No - Nursing Vital Signs Nursing Vital Signs: Initial Vital Signs Temperature 97.6 F 07/05/22 10:46 Pulse Rate 86 07/05/22 10:46 Respiratory Rate 19 07/05/22 10:46 Blood Pressure 143/106 07/05/22 10:46 O2 Sat by Pulse Oximetry 98 07/05/22 10:46 Pain Scale Pain Intensity 10 - Physical Exam General Appearance: no apparent distress, alert, anxiety, obese Eyes, Ears, Nose, Throat Exam: normal ENT inspection, moist mucous membranes Neck Exam: normal inspection, non-tender, supple, full range of motion Cardiovascular/Respiratory Exam: chest non-tender, no respiratory distress Abdominal Exam: non-tender Back Exam: normal inspection, normal range of motion, No CVA tenderness, No vertebral tenderness Shoulder Exam: normal inspection, non-tender, no evidence of injury, normal ROM Elbow/Forearm Exam: normal inspection, non-tender, no evidence of injury, normal ROM Wrist Exam: soft tissue tenderness (no compartment syndrome) Hand Exam: limited ROM, soft tissue tenderness, swelling (Without evidence of compartment) Mental Status Exam: alert, oriented x 3, cooperative Skin Exam: normal color, warm, dry SpO2 Interpretation: No normal O2 Delivery: Room Air - Course Nursing assessment & vital signs reviewed: Yes Ordered Tests: Medication Summary Discontinued Medications Generic Name Dose Route Start Last Admin Trade Name Freq PRN Reason Stop Dose Admin Cephalexin HCl 500 mg 07/05/22 11:12 Cephalexin Mh500 Mg Capsule PO 07/05/22 11:13 STAT ONE Methylprednisolone Sodium 0 mg 07/05/22 11:11 Succinate 80 mg/ Sterile Water IM 07/05/22 11:12 2 ml STAT ONE Ketorolac Tromethamine 60 mg 07/05/22 11:11 Ketorolac Tromethamine 30 Mg/Ml Inj IM 07/05/22 11:12 STAT ONE - Progress Progress: unchanged Progress Note: 07/05/22 11:21 This patient's medical issue today is of low complexity. He is having recurrent and persistent swelling of his right hand and wrist. He is known to have ligamentous tear of the right wrist and he is a [facility] patient and they have not fully evaluated him yet per his report. I reviewed the patient's prior right wrist x-ray and right forearm x-ray reports. Patient has not had a second injury to the site. NSAIDs and steroid injections helped him quite a bit per his report. We will provide him with this treatment here in the emergency department I will also add Keflex 500 mg 3 times a day for the next 7 days. In addition, the patient would like a medication refill of hydrochlorothiazide 12.5 mg. I will write for 10 days of this medication until the [facility] sends him his filled prescription. I will also send a 2-day prescription of Percocet 5/325 number 6 tablets, 1 orally 3 times a day as needed for pain control. Counseled pt/family regarding: diagnosis, need for follow-up Medical Desision Making - Discussion of managment Reviewed:: Test results, Need for additional workup Agreed on:: Treatment plan, need for follow-up - Diagnostic Testing Radiological Interpretation: Reviewed by me, Teleradiologist Report - Risk of complications Minimal Risk: Minimal risk of morbidity - Departure Departure Disposition: Home Clinical Impression: Swelling of right hand, Swelling of right wrist, Disorder of ligament, right wrist Condition: Stable Critical Care Time: No Referrals: [facility]OSPITAL,'[facility] [Primary Care Provider] - Follow up/PCP as directed Additional Instructions: Ice bath right hand and wrist 3 times a day for the next 48 hours. Wear the splint that was provided to you on your last emergency department visit for pain control. Keep your right hand and wrist elevated above the level of your heart. Call the [facility] on 07/07/2022 to obtain permission to follow- up at the [facility] orthopedic clinic Thursday through Thursday 8 AM to 10 AM. It is a walk-in clinic and you do not need to have appointment made. Otherwise follow-up with the [facility] in their orthopedic clinic and follow-up with the [facility] on 07/21/2022 at your scheduled MRI appointment time. Prescriptions: Oxycodone HCl/Acetaminophen [Percocet 5-325 mg Tablet] 1 each PO Q8H PRN PRN #6 tablet MDD 3 PRN Reason: Moderate To Severe Pain Prednisone 10 mg [Deltasone 10 mg] 10 mg PO TID #12 tablet hydroCHLOROthiazide [Hydrochlorothiazide] 12.5 mg PO DAILY #10 cap Cephalexin Mh 500 mg [Keflex 500 mg] 500 mg PO TID #21 cap
[2022-07-05 10:57] VITALS: BP 143/106; PULSE 86; O2SAT 98
[2022-07-05] MEDS ORDERED: TORAdol 30 mg Injection IM ONE (11:11)
[2022-07-05] MEDS ORDERED: solu-MEDROL 80 MG, Sterile H2O 10 ml 2 ML IM ONE ×2 (11:11)
[2022-07-05] MEDS ORDERED: KEFLEX 500 MG PO ONE (11:12)
[2022-07-05] MEDS ORDERED: Sterile H2O 10 ml IJ ONE (11:21)
[2022-07-05] MEDS ORDERED: TORAdol 30 mg Injection ONE (11:21)
[2022-07-05] MEDS ORDERED: KEFLEX 500 MG ONE (11:22)
[2022-07-05] MEDS ORDERED: solu-MEDROL ONE (11:22)
== END 2022-07-05 11:48 | disposition home or self-care (01) ==
LOC: ED 10:32
DX: M24.231 Disorder of ligament, right wrist (principal); M25.431 Effusion, right wrist; R60.0 Localized edema; M79.641 Pain in right hand; I10 Essential (primary) hypertension; E78.5 Hyperlipidemia, unspecified; Z79.891 Long term (current) use of opiate analgesic; Z79.52 Long term (current) use of systemic steroids; Z79.899 Other long term (current) drug therapy; Z28.310 Unvaccinated for COVID-19
CPT/HCPCS: 96372; 99283; J1885; J2930; A9270-GY

== ENCOUNTER 2022-08-04 05:50 | Emergency (ER) | payer OTHER ==
[2022-08-04] MEDS ORDERED: TORAdol 30 mg Injection IM ONE (06:07)
[2022-08-04] MEDS ORDERED: TORAdol 30 mg Injection ONE (06:13)
--- NOTE | 2022-08-04 06:14 | ERPHSYRPT ---
- History of Present Illness Time Seen by Provider: 08/04/22 06:09 Source: patient Exam Limitations: no limitations Physician History: Patient is 47-year-old male came to the emergency room with sudden onset of right foot and right great toe pain which started last night. Patient stated that he has a long history of gout and when he eats improper diet and does not drink enough fluid his gout acts up. He has been on colchicine but he has run out. Patient is being followed up at [facility] for his gout. Patient denies any other symptoms. Timing/Duration: yesterday Severity: moderate Associated Symptoms: denies symptoms Allergies/Adverse Reactions: [id number] Reductase Inhibitor Allergy (Verified 07/05/22 10:45) Home Medications: Omeprazole 40 mg PO DAILY PRN PRN 08/04/22 [History] allopurinoL [Allopurinol] 400 mg PO HS 08/04/22 [History] Hx Tetanus, Diphtheria Vaccination/Date Given: No Hx Influenza Vaccination/Date Given: Yes Hx Pneumococcal Vaccination/Date Given: No Travel Risk - Vaccine Status Have you recieved a Covid-19 vaccination: No - Review of Systems Constitutional: No Fever, No Chills Eyes: No Symptoms Ears, Nose, & Throat: No Symptoms Respiratory: No Cough, No Dyspnea Cardiac: No Chest Pain, No Edema, No Syncope Abdominal/Gastrointestinal: No Abdominal Pain, No Nausea, No Vomiting, No Diarrhea Genitourinary Symptoms: No Dysuria Musculoskeletal: Joint Pain (right foot and great toe), Joint Swelling, No Back Pain, No Neck Pain Skin: No Rash Neurological: No Dizziness, No Focal Weakness, No Sensory Changes Psychological: No Symptoms Endocrine: No Symptoms All Other Systems: Reviewed and Negative - Past Medical History Pertinent Past Medical History: Yes Neurological History: No Pertinent History Cardiac History: High Cholesterol, Hypertension Respiratory History: No Pertinent History Endocrine Medical History: No Pertinent History Musculoskeletal History: Fractures - Past Surgical History Past Surgical History: Yes Other Surgical History: jessica. right bicep - Social History Smoking Status: Former smoker Exposure to second hand smoke: Yes Drug Use: none Patient Lives Alone: No - Nursing Vital Signs Nursing Vital Signs: Initial Vital Signs Temperature 98.0 F 08/04/22 05:59 Pulse Rate 112 H 08/04/22 05:59 Respiratory Rate 20 08/04/22 05:59 Blood Pressure 169/112 08/04/22 05:59 O2 Sat by Pulse Oximetry 96 08/04/22 05:59 Pain Scale Pain Intensity 8 - Physical Exam General Appearance: no apparent distress, alert Eye Exam: PERRL/EOMI, eyes nml inspection Ears, Nose, Throat Exam: normal ENT inspection, TMs normal, pharynx normal, moist mucous membranes Neck Exam: normal inspection, non-tender, supple, full range of motion Respiratory Exam: normal breath sounds, lungs clear, No respiratory distress Cardiovascular Exam: regular rate/rhythm, normal heart sounds, normal peripheral pulses Gastrointestinal/Abdomen Exam: soft, normal bowel sounds, No tenderness, No mass Back Exam: normal inspection, normal range of motion, No CVA tenderness, No vertebral tenderness Extremity Exam: normal inspection, normal range of motion, pelvis stable, inflammation (right great toe) Neurologic Exam: alert, oriented x 3, cooperative, normal mood/affect, nml cerebellar function, nml station & gait, sensation nml, No motor deficits Skin Exam: normal color, warm, dry, No rash Lymphatic Exam: No adenopathy SpO2: 96 - Course Nursing assessment & vital signs reviewed: Yes Ordered Tests: Medication Summary Discontinued Medications Generic Name Dose Route Start Last Admin Trade Name Freq PRN Reason Stop Dose Admin Ketorolac Tromethamine 60 mg 08/04/22 06:07 Ketorolac Tromethamine 30 Mg/Ml Inj IM 08/04/22 06:08 STAT ONE - Progress Progress: improved, pain not gone completely Counseled pt/family regarding: diagnosis, need for follow-up Medical Desision Making - Diagnostic Testing Diagnostic test were ordered, analyzed, and reviewed by me: No - Risk of complications Low Risk: Low risk of morbidity from additional dx testing or treatment - Departure Departure Disposition: Home Clinical Impression: Acute gouty arthritis Gout attack Qualifiers: Gout site: toe Gout etiology: idiopathic Laterality: right Qualified Code(s): M10.071 - Idiopathic gout, right ankle and foot Condition: Stable Critical Care Time: No Instructions: Gout (DC), Lifestyle Changes to Manage Gout, Low Purine Diet, Gout ED Additional Instructions: Discharge/Care Plan EAMON ECKERT was seen on 08/04/22 in the Emergency Room. The patient was counseled regarding Diagnosis,Lab results, Imaging studies, need for follow up and when to return to the Emergency Room. Prescriptions given: Discharge Note I have spoken with the patient and/or caregivers. I have explained the patient's condition, diagnosis and treatment plan based on the information available to me at this time. I have answered the patient's and/or caregiver's questions and addressed any concerns. The patient and/or caregivers have as good understanding of the patient's diagnosis, condition and treatment plan as can be expected at this point. The vital signs have been stable. The patient's condition is stable and appropriate for discharge from the emergency department. The patient will pursue further outpatient evaluation with the primary care physician or other designated or consulting physician as outlined in the discharge instructions. The patient and/or caregivers are agreeable to this plan of care and follow-up instructions have been explained in detail. The patient and/or caregivers have received these instruction. The patient/and or caregivers are aware that any significant change in condition or worsening of symptoms should prompt an immediate return to this or the closest emergency department or call 911. EAMON ECKERT Harmeet was seen on 08/04/22 n the Emergency Room. At that time you were treated for an emergent condition, during your visit Laboratory, Radiology and/or other procedures may have been ordered. It is very important that you follow-up with your Primary Care Physician within the next 24-48 hours to review your Emergency Room visit and the final results of testing that was ordered. Some test results such as Urine Cultures, Blood Cultures, and other cultures if ordered will not be finalized for 24-48 hours. If you do not have a Primary Care Provider please call the medical records department at [phone] ext [phone] to obtain a copy of your results or you may sign into our patient portal to obtain these results by visiting us @ [email or web address] and completing the following steps: 1. Click on the Patient Portal link 2. Click the Patient Self Enrollment Link to complete the enrollment form and entering your 3. Once the enrollment form is completed you will receive an email with a temporary ID and password at the email address you provided. 4. Next choose a user name and password. Your user name must be at least 4 characters long and your password must be at least 4 characters long. 5. Choose a security question from the list and provide your answer to the question. If you already have signed into the Health Portal you may access your Health Care Information 24/7 by the following steps: 1. Login to our website @ [email or web address] 2. Enter your original user name and password. FAQS The [facility] Health Portal is an online tool that contains your Lab Results, Radiology Reports, Visit History, Discharge Instructions and Health Summary Lab and Radiology Results will not be available for 72 hours on the portal. The Portal is a secure site, passwords are encryted and URLs are re-written so they cannot be copied and pasted. You and authorized family members are the only ones who can access your Portal. Also there is a timeout feature that protects your information if you leave the Portal page open. If you have technical difficulty please use the Contact Us link on the page this will allow you to submit any questions you have regarding the Portal or you may contact the Medical Record Department at [phone] ext [phone]. Prescriptions: Colchicine 0.6 mg PO Q8H #30 tablet
[2022-08-04 06:37] VITALS: BP 166/98; PULSE 104; O2SAT 97
== END 2022-08-04 06:39 | disposition home or self-care (01) ==
LOC: ED 05:50
DX: M10.071 Idiopathic gout, right ankle and foot (principal); M79.671 Pain in right foot; M79.674 Pain in right toe(s); E78.5 Hyperlipidemia, unspecified; I10 Essential (primary) hypertension; Z79.899 Other long term (current) drug therapy; Z28.310 Unvaccinated for COVID-19
CPT/HCPCS: 96372; 99282; J1885

== ENCOUNTER 2022-09-15 05:16 | Emergency (ER) | payer OTHER ==
[2022-09-15 05:27] VITALS: O2SAT 95
--- NOTE | 2022-09-15 05:43 | ERPHSYRPT ---
- History of Present Illness Time Seen by Provider: 09/15/22 05:43 Source: patient Exam Limitations: no limitations Patient Subjective Stated Complaint: rt wrist, hand and forearm pain since last week and swelling to rt wrist/hand Triage Nursing Assessment: pt ambulated into ER without diff. Pt is alert and oriented x4, pleasant and cooperative. Pt c/o rt hand, forearm and wrist pain x2 weeks and swelling to this area x4 days. Radial pulse present and strong. Pt had injury to this wrist in 2016 and had a torn ligament and cartilage per pt . Pt has slight amount of edema to rt hand/wrist area. Physician History: 47-year-old male presents with right wrist pain and swelling. Patient reports an injury in 2016 that has not improved in 8 weeks ago reinjured the wrist increasing his pain. Tonight the pain and swelling was so severe that prompted him to come in this morning. His pain is on the ulnar aspect of his right wrist he is starting to have numbness and tingling of his fourth and fifth fingers. He denies any redness but does report warmth of the area. Range of motion is reduced and painful. He also reports pain along the syndesmosis when he presses on it. He denies any pain at the elbow. He denies fever, chills, nausea vomiting. He has tried wrist braces and diclofenac with minimal relief. Did offer fusion but he refused this procedure and would like second opinion. [facility] He has a history of gout and is on allopurinol and has colchicine for as needed use, but continues to be on hydrochlorothiazide. Occurred: other (initial injury 2015, reinjury 8 weeks ago) Method of Injury: direct blow Quality: constant, burning, throbbing Severity of Pain-Max: severe Severity of Pain-Current: severe Extremities Pain Location: wrist: right Modifying Factors: Improves With: nothing. Worsens With: movement Associated Symptoms: other (numbness/tingling of 4th,5th digits) Allergies/Adverse Reactions: [id number] Reductase Inhibitor Allergy (Verified 09/15/22 05:35) Home Medications: Omeprazole 40 mg PO DAILY PRN PRN 08/04/22 [History] allopurinoL [Allopurinol] 600 mg PO HS 08/04/22 [History] Colchicine 0.6 mg PO Q8H PRN 09/15/22 [History] Hx Tetanus, Diphtheria Vaccination/Date Given: Yes Hx Influenza Vaccination/Date Given: Yes Hx Pneumococcal Vaccination/Date Given: No Immunizations Up to Date: Yes Travel Risk - International Travel Have you traveled outside of the country in past 3 weeks: No - Coronavirus Screening Are you exhibiting any of the following symptoms?: No Close contact with a COVID-19 positive Pt in past 14-21 Days: No - Vaccine Status Have you recieved a Covid-19 vaccination: No - Review of Systems Constitutional: No Symptoms Musculoskeletal: Joint Pain (right wrist pain), Joint Swelling, No Joint Redness Skin: No Symptoms Neurological: Parasthesia (4th, 5th digits), No Sensory Changes - Past Medical History Pertinent Past Medical History: Yes Neurological History: No Pertinent History Cardiac History: High Cholesterol, Hypertension Respiratory History: No Pertinent History Endocrine Medical History: No Pertinent History Musculoskeletal History: Fractures Other Medical History: gout. rt wrist torn ligament and cartilage - Past Surgical History Past Surgical History: Yes Gastrointestinal: Cholecystectomy Male Surgical History: Vasectomy Other Surgical History: right bicep - Social History Smoking Status: Never smoker Exposure to second hand smoke: No Drug Use: none Patient Lives Alone: No - Nursing Vital Signs Nursing Vital Signs: Initial Vital Signs Temperature 97.6 F 09/15/22 05:25 Pulse Rate 93 H 09/15/22 05:25 Respiratory Rate 20 09/15/22 05:25 Blood Pressure 137/101 09/15/22 05:25 O2 Sat by Pulse Oximetry 95 09/15/22 05:25 Pain Scale Pain Intensity 5 - Physical Exam General Appearance: mild distress Shoulder Exam: normal inspection, normal ROM Elbow/Forearm Exam: normal inspection, non-tender, no evidence of injury, normal ROM Wrist Exam: bone tenderness, limited ROM, pain, soft tissue tenderness, swelling (mild right wrist swelling over ulnar aspect), No ecchymosis Hand Exam: normal inspection, soft tissue tenderness (over ECU, UCL) Neuro/Tendon Exam: normal sensation, normal motor functions (DAB, PAD strength 4/5) Mental Status Exam: alert, oriented x 3, cooperative Skin Exam: normal color, warm, dry SpO2 Interpretation: normal SpO2: 95 O2 Delivery: Room Air Procedures - Additional Procedures Progress: Right wrist injection Area of maximal tenderness on ulnar aspect was marked and then prepped in the usual sterile fashion. Using a 25 gauge 1.5 inch needle,aspiration was attempted but no fluid was withdrawn. 2 mL of lidocaine and triamcinolone - 40 mg was injected without difficulty. After injection, the patient was able to move the wrist through the full range of motion and a sterile dressing was applied. The patient tolerated the procedure well. Aftercare discussed. - Course Nursing assessment & vital signs reviewed: Yes - Radiology Exams Right Wrist X-ray Interpretation: Interpreted by me, Other (separation of the distal radius and ulna concerning for TFCC tear) Ordered Tests: Active Orders 24 hr Category Date Time Status WRIST (MIN 3 VIEWS) Stat Exams 09/15/22 05:46 Completed CBC Stat Lab 09/15/22 05:56 Completed CMP Stat Lab 09/15/22 05:56 Completed Erythrocyte Sedimentation Rate Stat Lab 09/15/22 05:56 Completed Uric Acid Stat Lab 09/15/22 05:56 Completed Medication Summary Discontinued Medications Generic Name Dose Route Start Last Admin Trade Name Freq PRN Reason Stop Dose Admin Lidocaine HCl Confirm 09/15/22 06:31 Lidocaine Hcl 1% 20 Ml Mdv 20 Ml Ml Administered 09/15/22 06:32 Dose 1 ml .ROUTE .STK-MED ONE Lidocaine HCl 1 ml 09/15/22 06:53 09/15/22 06:40 Lidocaine Hcl 1% 20 Ml Mdv 20 Ml Ml IJ 09/15/22 06:54 1 ml STAT ONE Administration Triamcinolone Acetonide Confirm 09/15/22 06:31 Triamcinolone Acetonide 40 Mg/Ml Ml Administered 09/15/22 06:32 Dose 40 mg .ROUTE .STK-MED ONE Triamcinolone Acetonide 40 mg 09/15/22 06:54 09/15/22 06:40 Triamcinolone Acetonide 40 Mg/Ml Ml IJ 09/15/22 06:55 40 mg STAT ONE Administration Lab/Rad Data: Laboratory Result Diagrams 09/15/22 05:56 09/15/22 05:56 Laboratory Results 09/15/22 09/15/22 Range/Units 05:56 05:56 WBC 6.3 (4.0-10.5) x10^3/uL RBC 4.51 (4.1-5.6) x10^6/uL Hgb 13.9 (12.5-18.0) g/dL Hct 41.2 L (42-50) % MCV 91.4 (78-100) fL MCH 30.8 (26-32) pg MCHC 33.7 (32-36) g/dL RDW 12.3 (11.5-14.0) % Plt Count 159 (150-450) x10^3/uL MPV 10.0 (7.5-11.0) fL ESR 12 (0-15) mm/hr Sodium 140 (137-145) mmol/L Potassium 4.6 (3.5-5.1) mmol/L Chloride 103 (98-107) mmol/L Carbon Dioxide 23 (22-30) mmol/L Anion Gap 18.2 H (5-15) MEQ/L BUN 23 H (9-20) mg/dL Creatinine 1.02 (0.66-1.25) mg/dL Estimated GFR > 60.0 ML/MIN Glucose 111 H (74-106) mg/dL Uric Acid 8.2 H (3.5-7.2) mg/dL Calcium 9.1 (8.4-10.2) mg/dL Total Bilirubin 0.50 (0.2-1.3) mg/dL AST 73 H (17-59) U/L ALT 66 H (0-50) U/L Alkaline Phosphatase 85 (38-126) U/L Serum Total Protein 8.0 (6.3-8.2) g/dL Albumin 4.4 (3.5-5.0) g/dL - Progress Progress: unchanged Progress Note: Offered CSI to right TFCC, patient would like to proceed. CSI injection performed w/o complication. Encouraged f/u w/ Dr. Pena for further evaluation. Uric acid level was elevated at 8 on Allopurinol. Sent Colchicine and encouraged to continue his Diclofenac. Advised patient that he may need to have his HCTZ changed to help prevent hyperuricemia. 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 Prescriptions: Colchicine 0.6 mg PO DAILY #3 tablet
[2022-09-15 06:03] LABS: Hematocrit 41.2 % (42-50); Hemoglobin 13.9 g/dL (12.5-18.0); Mean Cell Volume 91.4 fL (78-100); Mean Corpuscular Hemoglobin 30.8 pg (26-32); Mean Corpuscular Hgb Concent. 33.7 g/dL (32-36); Platelet Count 159 x10^3/uL (150-450); Red Blood Count 4.51 x10^6/uL (4.1-5.6); Red Cell Distribution Width 12.3 % (11.5-14.0); White Blood Count 6.3 x10^3/uL (4.0-10.5)
[2022-09-15 06:15] LABS: ALBUMIN 4.4 g/dL (3.5-5.0); ALKALINE PHOSPHATASE 85 U/L (38-126); ANION GAP 18.2 MEQ/L (5-15); BLOOD UREA NITROGEN 23 mg/dL (9-20); CHLORIDE 103 mmol/L (98-107); Calcium 9.1 mg/dL (8.4-10.2); Carbon Dioxide 23 mmol/L (22-30); Creatinine 1 1.02 mg/dL (0.66-1.25); EST GLOMERULAR FILTRATION RATE > 60.0 ML/MIN; Glucose 111 mg/dL (74-106); Potassium 4.6 mmol/L (3.5-5.1); SGOT/AST 73 U/L (17-59); SGPT/ALT 66 U/L (0-50); SODIUM 140 mmol/L (137-145); Uric Acid 8.2 mg/dL (3.5-7.2)
[2022-09-15 06:26] LABS: Erythrocyte Sedimentation Rate 12 mm/hr (0-15)
[2022-09-15] MEDS ORDERED: XYLOCAINE 1% HCL 20 ML MDV ONE (06:31)
[2022-09-15] MEDS ORDERED: Kenalog-40 ONE (06:31)
[2022-09-15] MEDS ORDERED: XYLOCAINE 1% HCL 20 ML MDV IJ ONE (06:53)
[2022-09-15] MEDS ORDERED: Kenalog-40 IJ ONE (06:54)
[2022-09-15 07:06] VITALS: BP 142/93; PULSE 92
--- NOTE | 2022-09-15 08:54 | XRAY ---
Indication: Pain following injury. Comparison: June 25, 2022 3 view right wrist unchanged again demonstrating radiocarpal joint space narrowing, widened scapholunate interval favoring underlying ligamentous tear, and minimal 1st metacarpal multangular degenerative changes. No new/acute abnormalities.
== END 2022-09-15 07:03 | disposition home or self-care (01) ==
LOC: ED 05:16
DX: M25.531 Pain in right wrist (principal); R22.31 Localized swelling, mass and lump, right upper limb; S69.81XA Other specified injuries of right wrist, hand and finger(s), initial encounter; M1A.9XX0 Chronic gout, unspecified, without tophus (tophi); R20.2 Paresthesia of skin; E78.5 Hyperlipidemia, unspecified; I10 Essential (primary) hypertension; Z79.899 Other long term (current) drug therapy; Z28.310 Unvaccinated for COVID-19
CPT/HCPCS: 20605; 36415; 73110; 80053; 84550; 85027; 85652; 96374; 96375; 99283; J3301

== ENCOUNTER 2022-09-27 03:29 | Emergency (ER) | payer OTHER ==
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
[2022-09-27 04:32] VITALS: O2SAT 96
[2022-09-27] MEDS ORDERED: DELTASONE 20 MG PO ONE (04:37)
[2022-09-27] MEDS ORDERED: HYDROCODONE-ACETAMIN 10-325 MG PO PRN ×2 (04:38→04:42)
[2022-09-27] MEDS ORDERED: HYDROCODONE-ACETAMIN 10-325 MG PO ONE (04:38)
[2022-09-27] MEDS ORDERED: HYDROCODONE-ACETAMIN 10-325 MG ONE (04:43)
[2022-09-27] MEDS ORDERED: DELTASONE 20 MG ONE (04:43)
[2022-09-27 05:03] VITALS: BP 152/91; PULSE 101
--- NOTE | 2022-09-27 05:57 | XRAY ---
Indication: Pain. Comparison: June 25, 2022 2 view right forearm demonstrates stable proximal radial shaft postsurgical changes with orthopedic button. No other bony, articular, or soft tissue abnormalities. Hand reported separately.
--- NOTE | 2022-09-27 05:59 | XRAY ---
Indication: Pain. Comparison: September 15, 2022 3 view right hand again demonstrates radiocarpal joint space narrowing, widened scapholunate interval favoring underlying ligamentous tear, and minimal 1st metacarpal multangular degenerative changes. No new/acute abnormalities.
== END 2022-09-27 05:05 | disposition home or self-care (01) ==
LOC: ED 03:29
DX: M25.531 Pain in right wrist (principal); M79.641 Pain in right hand; E78.5 Hyperlipidemia, unspecified; I10 Essential (primary) hypertension; Z79.52 Long term (current) use of systemic steroids; Z79.899 Other long term (current) drug therapy; Z28.310 Unvaccinated for COVID-19
CPT/HCPCS: 73090; 73130; 99283; A9270-GY

== ENCOUNTER 2023-02-11 15:20 | Emergency (ER) | payer OTHER ==
[2023-02-11 17:41] VITALS: TEMP 98.4
[2023-02-11 17:45] VITALS: RESP 20
[2023-02-11] MEDS ORDERED: DECADRON 10MG INJ. IM ONE (17:52)
[2023-02-11] MEDS ORDERED: TORAdol 30 mg Injection IM ONE (17:52)
[2023-02-11] MEDS ORDERED: DECADRON 10MG INJ. ONE (17:54)
[2023-02-11] MEDS ORDERED: TORAdol 30 mg Injection ONE (17:54)
--- NOTE | 2023-02-11 17:58 | ERPHSYRPT ---
- History of Present Illness Source: patient Exam Limitations: no limitations Patient Subjective Stated Complaint: pt states gout flare up Triage Nursing Assessment: pt came into the er via wheelchair; pt is axo x4; c/o gout; redness and swelling to left lateral ankle; warmth present to left lateral ankle; strong left pedal pulse; good cap refill to LLE; no respiratory distress present; hypertensive Physician History: 47 yo WM w h/o gout presents L ankle pain x 3 days. Pt denies injury and states that his pain is a 6/10 and worse w weight bearing. He has a h/o of alcohol abuse in the past and drank a few beers yesterday. Method of Injury: unknown (No injury) Occurred: days ago (3 days) Quality: constant Severity of Pain-Max: severe Severity of Pain-Current: moderate Lower Extremities Pain: ankle: left Modifying Factors: Improves With: movement Associated Symptoms: none Allergies/Adverse Reactions: [id number] Reductase Inhibitor Allergy (Verified 02/11/23 17:19) Home Medications: Omeprazole 40 mg PO DAILY PRN PRN 08/04/22 [History] allopurinoL [Allopurinol] 600 mg PO HS 08/04/22 [History] Colchicine 0.6 mg PO Q8H PRN 09/15/22 [History] Naltrexone Microspheres [Vivitrol] 380 mg IM UD 02/11/23 [History] Hx Tetanus, Diphtheria Vaccination/Date Given: No Hx Influenza Vaccination/Date Given: No Hx Pneumococcal Vaccination/Date Given: No Travel Risk - International Travel Have you traveled outside of the country in past 3 weeks: No - Coronavirus Screening Are you exhibiting any of the following symptoms?: No Close contact with a COVID-19 positive Pt in past 14-21 Days: No - Vaccine Status Have you recieved a Covid-19 vaccination: No - Review of Systems Constitutional: No Symptoms Eyes: No Symptoms Ears, Nose, & Throat: No Symptoms Respiratory: No Symptoms Cardiac: No Symptoms Abdominal/Gastrointestinal: No Symptoms Genitourinary Symptoms: No Symptoms Skin: No Symptoms Neurological: No Symptoms Psychological: No Symptoms Endocrine: No Symptoms Hematologic/Lymphatic: No Symptoms Immunological/Allergic: No Symptoms - Past Medical History Pertinent Past Medical History: Yes Neurological History: No Pertinent History Cardiac History: High Cholesterol, Hypertension Respiratory History: No Pertinent History Endocrine Medical History: No Pertinent History Musculoskeletal History: Fractures Other Medical History: gout. rt wrist torn ligament and cartilage - Past Surgical History Past Surgical History: Yes Gastrointestinal: Cholecystectomy Musculoskeletal: Orthopedic Surgery Male Surgical History: Vasectomy Other Surgical History: right bicep, rt wrist surgery - Social History Smoking Status: Never smoker Exposure to second hand smoke: No Drug Use: none Patient Lives Alone: No - Nursing Vital Signs Nursing Vital Signs: Initial Vital Signs Temperature 98.4 F 02/11/23 17:21 Pulse Rate 107 H 02/11/23 17:21 Respiratory Rate 22 02/11/23 17:21 Blood Pressure 158/87 02/11/23 17:21 O2 Sat by Pulse Oximetry 97 02/11/23 17:21 Pain Scale Pain Intensity 6 Hypertension/Tachy - Physical Exam General Appearance: no apparent distress Eyes, Ears, Nose, Throat Exam: normal ENT inspection, TMs normal, pharynx normal, moist mucous membranes Neck Exam: normal inspection, non-tender, supple, full range of motion, No Brudzinski, No Kernig's, No meningismus Cardiovascular/Respiratory Exam: normal breath sounds, heart sounds normal, tachycardia Gastrointestinal/Abdominal Exam: non-tender, soft Back Exam: normal inspection, normal range of motion Hips Exam: bilateral: non-tender, normal inspection, normal range of motion, no evidence of injury Legs Exam: bilateral leg: non-tender, normal inspection, normal range of motion, no evidence of injury Knees Exam: bilateral knee: non-tender, normal inspection, normal range of motion, no evidence of injury Ankle Exam: left ankle: other (L ankle grossly edematous/erythematous/TTP) Foot Exam: bilateral foot: non-tender, normal inspection, normal range of motio n, no evidence of injury Neuro/Tendon Exam: normal sensation, normal motor functions, normal tendon functions, responds to pain, no evidence tendon injury Mental Status Exam: alert, oriented x 3, cooperative Skin Exam: warm, dry SpO2 Interpretation: normal SpO2: 94 O2 Delivery: Room Air - Course Nursing assessment & vital signs reviewed: Yes Ordered Tests: Medication Summary Discontinued Medications Generic Name Dose Route Start Last Admin Trade Name Freq PRN Reason Stop Dose Admin Dexamethasone Sodium Phosphate 10 mg 02/11/23 17:52 02/11/23 17:55 Dexamethasone Sod Phosphate 10 Mg/Ml IM 02/11/23 17:53 10 mg STAT ONE Administration Dexamethasone Sodium Phosphate Confirm 10/04/23 17:54 Dexamethasone Sod Phosphate 10 Mg/Ml Administered 02/11/23 17:55 Dose 10 mg .ROUTE .STK-MED ONE Ketorolac Tromethamine 30 mg 02/11/23 17:52 02/11/23 17:55 Ketorolac Tromethamine 30 Mg/Ml Inj IM 02/11/23 17:53 30 mg STAT ONE Administration Ketorolac Tromethamine Confirm 02/11/23 17:54 Ketorolac Tromethamine 30 Mg/Ml Inj Administered 02/11/23 17:55 Dose 30 mg .ROUTE .STK-MED ONE - Progress Progress: improved Progress Note: 02/11/23 19:42 Nursing note and vital signs reviewed No food or housing insecurities noted Pt has a h/o frequent gout w similar symptoms and also drank alcohol yesterday 02/11/23 19:44 10mg IM Decadron/30mg IM Toradol Pt advised to f/u w his PCP Prednisone 10mg daily for 3 days/Indocin as needed for pain Pt advised to stop meds for GI upset/hematochezia/hematemesis Also advised to stop drinking alcohol Counseled pt/family regarding: diagnosis, need for follow-up Medical Desision Making - Independent Historian Additional History obtained from: Spouse - Risk of complications The pt has a mod risk of morbidity or mortality based on: Need for prescription drug management - Departure Departure Disposition: Home Clinical Impression: Gout Condition: Stable Critical Care Time: No Referrals: [facility]OS[facility] [Primary Care Provider] - Follow up/PCP as directed Instructions: Gout (DC) Additional Instructions: Indocin as needed for pain Prednisone once daily for 3 days Follow up with your family MD Stop Indocin for an GI upset or blood in stool Pepcid 40mg Daily while taking Indocin/Prednisone Return to ER as needed Prescriptions: Prednisone 10 mg [Deltasone 10 mg] 10 mg PO DAILY 3 Days #3 tablet Indomethacin 25 mg [Indocin 25 MG] 25 mg PO TID PRN PRN #12 cap PRN Reason: Pain
[2023-02-11 18:30] VITALS: BP 142/87; PULSE 103
[2023-02-11 19:46] VITALS: O2SAT 94
== END 2023-02-11 18:29 | disposition home or self-care (01) ==
LOC: ED 15:20
DX: M10.9 Gout, unspecified (principal); M25.572 Pain in left ankle and joints of left foot; E78.5 Hyperlipidemia, unspecified; I10 Essential (primary) hypertension; Z79.52 Long term (current) use of systemic steroids; Z79.899 Other long term (current) drug therapy; Z28.310 Unvaccinated for COVID-19
CPT/HCPCS: 96372; 99283; J1100; J1885

== ENCOUNTER 2023-07-22 14:31 | Emergency (ER) | payer OTHER ==
--- NOTE | 2023-07-22 14:40 | ERPHSYRPT ---
- History of Present Illness Time Seen by Provider: 07/22/23 14:40 Source: patient, family Exam Limitations: no limitations Physician History: This is a 48-year-old morbidly obese white male patient who presents with approximately 1 week history of worsening pain in the left popliteal fossa region as well as left calf. Patient denies a specific injury. Patient has a history of gout and thought maybe this was causing his pain. He has been standing up for long periods of time at work and in an awkward position. Patient has a history of gastroesophageal reflux disease, hypertension, hyperlipidemia and gout. Patient denies chest pain and he denies shortness of b reath. Method of Injury: unknown Occurred: other Quality: constant, aching (Symptoms present for approximately 1 week) Severity of Pain-Max: moderate Severity of Pain-Current: moderate Lower Extremities Pain: knee: left (Left popliteal fossa and left posterior calf) Modifying Factors: Improves With: movement Associated Symptoms: none Allergies/Adverse Reactions: [id number] Reductase Inhibitor Allergy (Mild, Verified 07/22/23 14:47) Home Medications: Omeprazole 40 mg PO DAILY PRN PRN 08/04/22 [History] Colchicine [Lodoco] 0.5 mg PO TID PRN 07/22/23 [History] atenoloL [Atenolol] 25 mg PO DAILY 07/22/23 [History] Hx Tetanus, Diphtheria Vaccination/Date Given: No Hx Influenza Vaccination/Date Given: No Hx Pneumococcal Vaccination/Date Given: No Travel Risk - International Travel Have you traveled outside of the country in past 3 weeks: No - Coronavirus Screening Are you exhibiting any of the following symptoms?: No Close contact with a COVID-19 positive Pt in past 14-21 Days: No - Vaccine Status Have you recieved a Covid-19 vaccination: No - Review of Systems Constitutional: No Symptoms Eyes: No Symptoms Ears, Nose, & Throat: No Symptoms Respiratory: No Symptoms Cardiac: No Symptoms Abdominal/Gastrointestinal: No Symptoms Musculoskeletal: Other (Pain left popliteal fossa and left posterior calf), No Injury Skin: No Symptoms Neurological: No Symptoms Psychological: No Symptoms Endocrine: No Symptoms Hematologic/Lymphatic: No Symptoms Immunological/Allergic: No Symptoms All Other Systems: Reviewed and Negative - Past Medical History Pertinent Past Medical History: Yes Neurological History: No Pertinent History ENT History: Cataracts Cardiac History: High Cholesterol, Hypertension Respiratory History: No Pertinent History Endocrine Medical History: No Pertinent History Musculoskeletal History: Fractures Other Medical History: gout. rt wrist torn ligament and cartilage - Past Surgical History Past Surgical History: Yes Neuro Surgical History: No Pertinent History Cardiac: No Pertinent History Respiratory: No Pertinent History Gastrointestinal: Cholecystectomy Genitourinary: No Pertinent History Musculoskeletal: Orthopedic Surgery Male Surgical History: Vasectomy Other Surgical History: right bicep, rt wrist surgery - Social History Smoking Status: Never smoker Exposure to second hand smoke: No Drug Use: none Patient Lives Alone: No - Nursing Vital Signs Nursing Vital Signs: Initial Vital Signs Temperature 99.0 F 07/22/23 14:37 Pulse Rate 96 H 07/22/23 14:37 Blood Pressure 113/66 07/22/23 14:37 O2 Sat by Pulse Oximetry 95 07/22/23 14:37 Pain Scale Pain Intensity 10 - Physical Exam General Appearance: no apparent distress, alert, anxiety, obese Eyes, Ears, Nose, Throat Exam: normal ENT inspection, moist mucous membranes Neck Exam: normal inspection, non-tender, supple, full range of motion Cardiovascular/Respiratory Exam: chest non-tender, normal breath sounds, heart sounds normal, no respiratory distress, No regular rate/rhythm Gastrointestinal/Abdominal Exam: non-tender Back Exam: normal inspection, normal range of motion, No CVA tenderness, No vertebral tenderness Hips Exam: bilateral: non-tender, normal inspection, normal range of motion, no evidence of injury Legs Exam: bilateral leg: non-tender, normal inspection, normal range of motion, no evidence of injury Knees Exam: right knee: non-tender, left knee: soft tissue tenderness (Left popliteal fossa tenderness to palpation. Left calf pain to palpation), bilateral knee: normal inspection, normal range of motion, no evidence of injury Ankle Exam: bilateral ankle: non-tender, normal inspection, normal range of motion, no evidence of injury Foot Exam: bilateral foot: non-tender, normal inspection, normal range of motion, no evidence of injury Neuro/Tendon Exam: normal sensation, normal motor functions, normal tendon functions, responds to pain, no evidence tendon injury Mental Status Exam: alert, oriented x 3, cooperative Skin Exam: normal color, warm, dry SpO2 Interpretation: normal O2 Delivery: Room Air - Course Nursing assessment & vital signs reviewed: Yes Ordered Tests: Active Orders 24 hr Category Date Time Status VENOUS UNILAT/LIMITED EXTREMIT [US] Stat Exams 07/22/23 15:35 Ordered D-DIMER QUANTITATIVE Stat Lab 07/22/23 15:11 Completed Lab/Rad Data: Laboratory Results 07/22/23 Range/Units 15:11 D-Dimer 0.51 H (0.0-0.50) mg/L - Progress Progress: improved, pain not gone completely, re-examined Progress Note: 07/22/23 15:17 This patient's medical issue is 1 of low complexity. The level of complexity in the workup performed is based on review of the patient's past medical history, review of the patient's medication list, review the patient drug allergy list, history present illness and physical findings on examination. The workup includes drawing a D-dimer level. If this is positive, we will proceed with ultrasound of the left lower extremity to evaluate for DVT. If it is negative we will prescribe the patient indomethacin and Percocet 5/325 pain medicine. These prescription will be remotely sent to the patient's pharmacy. 07/22/23 15:58 The venous Doppler of the left lower extremity was interpreted by the human geography faculty member/technologist. No left lower extremity DVT seen. 07/22/23 16:02 Patient states he is no longer taking naltrexone Counseled pt/family regarding: diagnosis, need for follow-up, rad results Medical Desision Making - Independent Historian Additional History obtained from: Spouse - Diagnostic Testing Diagnostic test were ordered, analyzed, and reviewed by me: Yes Radiological Interpretation: Reviewed by me, Teleradiologist Report - Risk of complications The pt has a mod risk of morbidity or mortality based on: Need for prescription drug management - Departure Departure Disposition: Home Clinical Impression: Posterior left knee pain Condition: Stable Critical Care Time: No Referrals: [facility]OSP[facility] [Primary Care Provider] - Follow up/PCP as directed Additional Instructions: Take your medications as prescribed. Call your primary care provider tomorrow, 07/23/2023, to make arrangements for further evaluation and a follow-up appointment in the next 3 to 5 days. Forms: Work/School Release Form Prescriptions: Oxycodone HCl/Acetaminophen [Percocet 5-325 mg Tablet] 1 each PO Q8H PRN PRN #6 tablet MDD 3 PRN Reason: Moderate To Severe Pain Prednisone 10 mg [Deltasone 10 mg] 10 mg PO TID #12 tablet
[2023-07-22 14:47] VITALS: BP 113/66; PULSE 96; TEMP 99; O2SAT 95
[2023-07-22] MEDS ORDERED: DELTASONE 20 MG ONE (16:08)
[2023-07-22] MEDS: DELTASONE 20 MG PO ONE (16:08)
[2023-07-22] MEDS: PERCOCET TABLET 5/325MG PO STA (16:08)
[2023-07-22] MEDS ORDERED: PERCOCET TABLET 5/325MG ONE (16:08)
--- NOTE | 2023-07-22 16:38 | XRAY ---
Indication: Calf and popliteal fossa pain. Two-dimensional sonogram and color Doppler imaging major venous vessels left leg performed. Comparison: None No thrombus seen in the examined deep venous vessels left leg including greater saphenous vein. Veins demonstrate normal compressibility. Venous waveforms are normal with and without augmentation. Impression: Left leg negative for DVT.
== END 2023-07-22 16:21 | disposition home or self-care (01) ==
LOC: ED 14:31
DX: M25.562 Pain in left knee (principal); M79.662 Pain in left lower leg; I10 Essential (primary) hypertension; E78.5 Hyperlipidemia, unspecified; Z79.891 Long term (current) use of opiate analgesic; Z79.52 Long term (current) use of systemic steroids; Z79.899 Other long term (current) drug therapy; Z28.310 Unvaccinated for COVID-19
CPT/HCPCS: 36415; 85379; 93971; 99283; A9270-GY

== ENCOUNTER 2023-08-17 12:21 | Emergency (ER) | payer OTHER ==
[2023-08-17 12:46] VITALS: TEMP 99.1; O2SAT 95
[2023-08-17] MEDS ORDERED: BABY ASPIRIN 81 MG CHEW ONE (12:50)
[2023-08-17] MEDS: BABY ASPIRIN 81 MG CHEW PO ONE (12:52)
[2023-08-17 12:59] LABS: Absolute Neutrophil Ct (ANC) 9.24 x10^3/uL (1.4-6.9); BASOPHIL % 0.3 % (0.0-0.4); Basophil (Absolute #) 0.05 x10^3/uL (0-0.4); Eosinophil % 0.6 % (0.00-5.0); Eosinophil (Absolute #) 0.09 x10^3/uL (0-0.5); Hemoglobin 16.5 g/dL (12.5-18.0); IMMATURE GRAN # 0.49 x10^3u/L (0.00-0.03); IMMATURE GRAN % 3.3 % (0.00-0.4); Lymphocyte (Absolute #) 3.58 x10^3/uL (1.0-4.6); Lymphocytes % 24.2 % (24.0-44.0); Mean Cell Volume 92.3 fL (78-100); Mean Corpuscular Hemoglobin 31.1 pg (26-32); Mean Corpuscular Hgb Concent. 33.7 g/dL (32-36); Mean Platelet Volume 9.8 fL (7.5-11.0); Monocyte (Absolute #) 1.33 x10^3/uL (0.0-1.3); Neutrophil % 62.6 % (36.0-66.0); Platelet Count 190 x10^3/uL (150-450); Red Blood Count 5.31 x10^6/uL (4.1-5.6); Red Cell Distribution Width 13.7 % (11.5-14.0); White Blood Count 14.8 x10^3/uL (4.0-10.5)
--- NOTE | 2023-08-17 13:19 | XRAY ---
Indication: Chest pain. Comparison: February 08, 2022 PA/lateral chest remains inflated and clear. Heart not enlarged. Bony thorax intact again with degenerative changes. No new/acute findings.
[2023-08-17 13:26] VITALS: PULSE 94
[2023-08-17 13:26] LABS: ANION GAP 16.2 MEQ/L (5-15); BILIRUBIN,TOTAL 0.4 mg/dL (0.2-1.3); Calcium 9.1 mg/dL (8.4-10.2); Creatinine 1 1.13 mg/dL (0.66-1.25); EST GLOMERULAR FILTRATION RATE 79.2 ML/MIN; Potassium 4.3 mmol/L (3.5-5.1); Total Protein 7.4 g/dL (6.3-8.2)
[2023-08-17] MEDS ORDERED: Lopressor 25MG Tab ONE (13:27)
[2023-08-17] MEDS: Lopressor 25MG Tab PO ONE (13:29)
--- NOTE | 2023-08-17 14:16 | ERPHSYRPT ---
- History of Present Illness Time Seen by Provider: 08/17/23 12:47 Source: patient Exam Limitations: no limitations Patient Subjective Stated Complaint: "I had the a shot in my neck last week and I've been having trouble with my blood pressure since. I've been to the [facility] and they won't help or change anything." Triage Nursing Assessment: Pt presents to the ER, appears anxious. Concerned about blood pressure and chest/neck pains that have been occuring since last Thursday. Pt had injection in the back of the neck on 08/11/23 and started having high blood pressure, flushed skin, and chest pain intermittently on 08/12/23. Pt has tachypnea but lungs are clear throughout. Pt abdomen is firm - states is a daily drinker of beer. Skin is flushed and hot to touch. Mildly febrile. Physician History: Patient arrives to the emergency department with concerns for high blood pressure. Patient states that last week he had an injection into the back of his neck. This was for pain. Since that time he has had several readings of high blood pressure. States that he feels he has had some intermittent chest pain and flushed skin. Currently has 0 out of 10 chest pain. Patient states that he is an everyday drinker. States that he was being seen at the [facility] in [place]. There they wanted to transfer him to [place] for admission to the hospital. They also recommended he be transferred to an emergency department. Ultimately, patient declined and drove himself to our emergency department. He is most concerned about his blood pressure. He is here with his . Endorsing no chest pain or shortness of breath. Allergies/Adverse Reactions: [id number] Reductase Inhibitor Allergy (Mild, Verified 08/17/23 12:46) Home Medications: Allopurinol 100 mg [Zyloprim 100 mg] 300 mg PO DAILY 08/17/23 [History] Ascorbic Acid 500 mg [Vitamin C 500 MG] 500 mg PO DAILY 08/17/23 [History] Carvedilol 12.5 mg [Coreg 12.5 mg] 25 mg PO BID 08/17/23 [History] Cholecalciferol (Vitamin D3) [Vitamin D3] 25 mcg PO DAILY 08/17/23 [History] Colchicine 0.6 mg PO BID 08/17/23 [History] Cyclobenzaprine HCl 10 mg [Cyclobenzaprine 10 MG] 10 mg pe PO TIDPRN PRN 08/17/23 [History] Diclofenac Submicronized [Diclofenac] 75 mg PO BID 08/17/23 [History] Losartan Potassium 50 mg [Cozaar 50 MG] 50 mg PO DAILY 08/17/23 [History] Metformin HCl 500 mg [Glucophage 500 MG] 1 tape PO DINNER 08/17/23 [History] Multivitamin 1 tab PO DAILY 08/17/23 [History] [place]-3 Fatty Acids/Fish Oil [Fish Oil 1,000 mg Capsule] 1 cap PO BID 08/17/23 [History] Omeprazole 40 mg PO BREAKFAST 08/17/23 [History] Prazosin HCl 1 mg PO HS 08/17/23 [History] Prednisone 20 mg [Deltasone 20 mg] 20 mg PO AC 08/17/23 [History] Sildenafil Citrate [Viagra] 25 mg PO HS PRN PRN 08/17/23 [History] Telmisartan 40 mg PO DAILY 08/17/23 [History] Vitamin E 400 Units [Vitamin E 400 UNIT SOFTGEL] 1 cap PO BID 08/17/23 [History] Hx Tetanus, Diphtheria Vaccination/Date Given: Yes Hx Influenza Vaccination/Date Given: No Hx Pneumococcal Vaccination/Date Given: No Immunizations Up to Date: No Travel Risk - International Travel Have you traveled outside of the country in past 3 weeks: No - Emerging Infectious Disease Are you exhibiting symptoms associated with any current EIDs: No - Past Medical History Pertinent Past Medical History: Yes Neurological History: No Pertinent History ENT History: Cataracts Cardiac History: High Cholesterol, Hypertension Respiratory History: No Pertinent History Endocrine Medical History: No Pertinent History Musculoskeletal History: Fractures Psycho-Social History: Depression, Other Other Medical History: gout. rt wrist torn ligament and cartilage. PTSD - Past Surgical History Past Surgical History: Yes Neuro Surgical History: No Pertinent History Cardiac: No Pertinent History Respiratory: No Pertinent History Gastrointestinal: Cholecystectomy Genitourinary: No Pertinent History Musculoskeletal: Orthopedic Surgery Male Surgical History: Vasectomy Other Surgical History: right bicep, rt wrist surgery - Social History Smoking Status: Never smoker Exposure to second hand smoke: No Drug Use: none Patient Lives Alone: No - Nursing Vital Signs Nursing Vital Signs: Initial Vital Signs Temperature 99.1 F 08/17/23 12:34 Pulse Rate 92 H 08/17/23 12:34 Respiratory Rate 22 08/17/23 12:34 Blood Pressure 155/87 08/17/23 12:34 O2 Sat by Pulse Oximetry 95 08/17/23 12:34 Pain Scale Pain Intensity 0 - Physical Exam SpO2: 95 Comments: 08/17/23 15:45 Review of Systems Constitutional: Negative for fever. HENT: Negative for congestion. Respiratory: Negative for shortness of breath. Cardiovascular: Negative for chest pain. Gastrointestinal: Negative for abdominal pain. Genitourinary: Negative for dysuria. Musculoskeletal: Negative for back pain. Skin: Negative for rash. Neurological: Negative for headaches. Psychiatric/Behavioral: Negative for behavioral problems. All other systems reviewed and are negative. Physical Exam Vitals signs and nursing note reviewed. Constitutional: Appearance: Patient is well-developed. HENT: Head: Normocephalic and atraumatic. Eyes: Conjunctiva/sclera: Conjunctivae normal. Neck: Musculoskeletal: Normal range of motion. Trachea: No tracheal deviation. Cardiovascular: Rate and Rhythm: Normal rate. Pulmonary: Effort: Pulmonary effort is normal. No respiratory distress. Abdominal: Palpations: Abdomen is soft. Musculoskeletal: General: No deformity. Skin: General: Skin is warm and dry. 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 STAT Care 08/17/23 12:39 Completed EKG-ER Only STAT Care 08/17/23 12:39 Completed CHEST 2 VIEWS (PA AND LAT) Stat Exams 08/17/23 12:38 Completed CBC W DIFF Stat Lab 08/17/23 12:55 Completed CK-Creatinine Phosphokinase Stat Lab 08/17/23 12:55 Completed CMP Stat Lab 08/17/23 12:55 Completed NT PRO BNPII Stat Lab 08/17/23 12:55 Completed TROPONIN Q4H Lab 08/17/23 12:55 Completed Medication Summary Discontinued Medications Generic Name Dose Route Start Last Admin Trade Name Doreen PRN Reason Stop Dose Admin Aspirin 324 mg 08/17/23 12:37 08/17/23 12:52 Aspirin 81 Mg Tab.Chew PO 08/17/23 12:38 243 mg STAT ONE Administration Aspirin Confirm 08/17/23 12:50 Aspirin 81 Mg Tab.Chew Administered 08/17/23 12:51 Dose 243 mg .ROUTE .STK-MED ONE Metoprolol Tartrate 25 mg 08/17/23 13:17 08/17/23 13:29 Metoprolol Tartrate 25 Mg Tab PO 08/17/23 13:18 25 mg STAT ONE Administration Metoprolol Tartrate Confirm 08/17/23 13:27 Metoprolol Tartrate 25 Mg Tab Administered 08/17/23 13:28 Dose 25 mg .ROUTE .STK-MED ONE Lab/Rad Data: Laboratory Result Diagrams 08/17/23 12:55 08/17/23 12:55 Laboratory Results 08/17/23 08/17/23 08/17/23 Range/Units 12:55 12:55 12:55 WBC (4.0-10.5) x10^3/uL RBC (4.1-5.6) x10^6/uL Hgb (12.5-18.0) g/dL Hct (42-50) % MCV (78-100) fL MCH (26-32) pg MCHC (32-36) g/dL RDW (11.5-14.0) % Plt Count (150-450) x10^3/uL MPV (7.5-11.0) fL Gran % (36.0-66.0) % Immature Gran % (Auto) (0.00-0.4) % Nucleat RBC Rel Count (0.00-0.1) % Eos # (Auto) (0-0.5) x10^3/uL Immature Gran # (Auto) (0.00-0.03) x10^3u/L Absolute Lymphs (auto) (1.0-4.6) x10^3/uL Absolute Monos (auto) (0.0-1.3) x10^3/uL Absolute Nucleated RBC (0.00-0.01) x10^3u/L Lymphocytes % (24.0-44.0) % Monocytes % (0.0-12.0) % Eosinophils % (0.00-5.0) % Basophils % (0.0-0.4) % Absolute Granulocytes (1.4-6.9) x10^3/uL Basophils # (0-0.4) x10^3/uL Sodium 134 L (135-145) mmol/L Potassium 4.3 (3.5-5.1) mmol/L Chloride 101 (98-107) mmol/L Carbon Dioxide 21 L (22-30) mmol/L Anion Gap 16.2 H (5-15) MEQ/L BUN 24 H (9-20) mg/dL Creatinine 1.13 (0.66-1.25) mg/dL Estimated GFR 79.2 ML/MIN Glucose 149 H (74-106) mg/dL Calcium 9.1 (8.4-10.2) mg/dL Total Bilirubin 0.40 (0.2-1.3) mg/dL AST 29 (17-59) U/L ALT 33 (0-50) U/L Alkaline Phosphatase 78 (38-126) U/L Creatine Kinase 91 (55-170) U/L Troponin I < 0.012 (0.000-0.033) ng/mL NT-Pro-B Natriuret Pep < 20.0 (<300) pg/mL Serum Total Protein 7.4 (6.3-8.2) g/dL Albumin 4.0 (3.5-5.0) g/dL 08/17/23 Range/Units 12:55 WBC 14.8 H (4.0-10.5) x10^3/uL RBC 5.31 (4.1-5.6) x10^6/uL Hgb 16.5 (12.5-18.0) g/dL Hct 49.0 (42-50) % MCV 92.3 (78-100) fL MCH 31.1 (26-32) pg MCHC 33.7 (32-36) g/dL RDW 13.7 (11.5-14.0) % Plt Count 190 (150-450) x10^3/uL MPV 9.8 (7.5-11.0) fL Gran % 62.6 (36.0-66.0) % Immature Gran % (Auto) 3.3 H (0.00-0.4) % Nucleat RBC Rel Count 0.0 (0.00-0.1) % Eos # (Auto) 0.09 (0-0.5) x10^3/uL Immature Gran # (Auto) 0.49 H (0.00-0.03) x10^3u/L Absolute Lymphs (auto) 3.58 (1.0-4.6) x10^3/uL Absolute Monos (auto) 1.33 H (0.0-1.3) x10^3/uL Absolute Nucleated RBC 0.00 (0.00-0.01) x10^3u/L Lymphocytes % 24.2 (24.0-44.0) % Monocytes % 9.0 (0.0-12.0) % Eosinophils % 0.6 (0.00-5.0) % Basophils % 0.3 (0.0-0.4) % Absolute Granulocytes 9.24 H (1.4-6.9) x10^3/uL Basophils # 0.05 (0-0.4) x10^3/uL Sodium (135-145) mmol/L Potassium (3.5-5.1) mmol/L Chloride (98-107) mmol/L Carbon Dioxide (22-30) mmol/L Anion Gap (5-15) MEQ/L BUN (9-20) mg/dL Creatinine (0.66-1.25) mg/dL Estimated GFR ML/MIN Glucose (74-106) mg/dL Calcium (8.4-10.2) mg/dL Total Bilirubin (0.2-1.3) mg/dL AST (17-59) U/L ALT (0-50) U/L Alkaline Phosphatase (38-126) U/L Creatine Kinase (55-170) U/L Troponin I (0.000-0.033) ng/mL NT-Pro-B Natriuret Pep (<300) pg/mL Serum Total Protein (6.3-8.2) g/dL Albumin (3.5-5.0) g/dL - Progress Progress: improved Progress Note: 08/17/23 15:45 Differential diagnosis includes: PNA, STEMI, NSTEMI, other infection, musculoskeletal pain, pneumothorax - We'll obtain basic labs, fluids, EKG, troponin, chest x-ray - EKG shows no ST changes - my read - O2 saturations consistently greater than 95%. - CXR shows no pneumonia, pneumothorax - my read Reevaluation: Patient looks improved here in the emergency department. We did give 1 dose of oral Lopressor. This did bring down his blood pressure, heart rate. Other lab abnormalities and tachypnea, initial uncomfortable appearance most likely secondary to daily drinking. I did discuss this with the patient. States his understanding and would like to follow-up with his PCP. I did feel comfortable with one-time negative troponin given the symptoms had been going on for greater than 5 days and he is currently chest pain-free. I did discuss going home with him and his . They state they feel comfortable with this plan. Will discharge home. Counseled pt/family regarding: lab results, diagnosis, need for follow-up, rad results - Departure Departure Disposition: Home Clinical Impression: Hypertension Condition: Stable Critical Care Time: No Referrals: [facility] [Primary Care Provider] - Follow up/PCP as directed Instructions: High Blood Pressure (DC)
[2023-08-17 14:21] VITALS: BP 128/84; RESP 22
== END 2023-08-17 14:30 | disposition home or self-care (01) ==
LOC: ED 12:21
DX: I10 Essential (primary) hypertension (principal); E78.5 Hyperlipidemia, unspecified; Z79.84 Long term (current) use of oral hypoglycemic drugs; Z79.52 Long term (current) use of systemic steroids; Z79.899 Other long term (current) drug therapy
CPT/HCPCS: 36415; 71046; 80053; 82550; 83880; 84484; 85025; 93005; 93041; 99284; A9270-GY

== ENCOUNTER 2023-11-01 11:33 | Emergency (ER) | payer OTHER ==
[2023-11-01 11:54] VITALS: TEMP 98
--- NOTE | 2023-11-01 12:03 | ERPHSYRPT ---
- History of Present Illness Time Seen by Provider: 11/01/23 11:59 Source: patient Exam Limitations: no limitations Patient Subjective Stated Complaint: pt here for swelling to both legs, right worse then left, was in car traveling a week and half ago, he is worried about a blood clot Triage Nursing Assessment: pt walked in, resp easy, skin w/d/p, has swelling to both legs, worse to right leg, slight redness to lower right leg, has strong pedal pulse, nailbeds pink Physician History: pt here for swelling to both legs, right worse then left, was in car traveling a week and half ago, he is worried about a blood clot Patient is 48-year-old male with significant past medical history of hypertension gout recently traveled to [place] which was a 12-hour trip in the car and he did not stop for 6 7 hours, started having a pain and swelling on his both lower extremities worse below the knees with some tight sensation. Patient denies any shortness of breath nausea vomiting headache or chest pain. Patient did not have this type of symptoms in the past. Patient usually follows at [facility] where he call and nurse practitioner told him to come to the emergency room. Occurred: last week Lower Extremities Pain: leg: bilateral Modifying Factors: Improves With: nothing Associated Symptoms: none Allergies/Adverse Reactions: [id number] Reductase Inhibitor Allergy (Mild, Verified 11/01/23 11:42) Home Medications: Allopurinol 100 mg [Zyloprim 100 mg] 300 mg PO DAILY 08/17/23 [History] Ascorbic Acid 500 mg [Vitamin C 500 MG] 500 mg PO DAILY 08/17/23 [History] Cholecalciferol (Vitamin D3) [Vitamin D3] 25 mcg PO DAILY 08/17/23 [History] Colchicine 0.6 mg PO BID 08/17/23 [History] Cyclobenzaprine HCl 10 mg [Cyclobenzaprine 10 MG] 10 mg pe PO TIDPRN PRN 08/17/23 [History] Losartan Potassium 50 mg [Cozaar 50 MG] 50 mg PO DAILY 08/17/23 [History] Multivitamin 1 tab PO DAILY 08/17/23 [History] [place]-3 Fatty Acids/Fish Oil [Fish Oil 1,000 mg Capsule] 1 cap PO BID 08/17/23 [History] Omeprazole 40 mg PO BREAKFAST 08/17/23 [History] Prazosin HCl 1 mg PO HS 08/17/23 [History] Prednisone 20 mg [Deltasone 20 mg] 20 mg PO AC 08/17/23 [History] Sildenafil Citrate [Viagra] 25 mg PO HS PRN PRN 08/17/23 [History] Telmisartan 40 mg PO DAILY 08/17/23 [History] Testosterone Enanthate [Xyosted] 100 mg SQ DAILY 11/01/23 [History] Hx Tetanus, Diphtheria Vaccination/Date Given: Yes Hx Influenza Vaccination/Date Given: Yes Hx Pneumococcal Vaccination/Date Given: Yes Immunizations Up to Date: Yes Travel Risk - International Travel Have you traveled outside of the country in past 3 weeks: No - Emerging Infectious Disease Are you exhibiting symptoms associated with any current EIDs: No - Review of Systems Constitutional: No Fever, No Chills Eyes: No Symptoms Ears, Nose, & Throat: No Symptoms Respiratory: No Cough, No Dyspnea Cardiac: No Chest Pain, No Edema, No Syncope Abdominal/Gastrointestinal: No Abdominal Pain, No Nausea, No Vomiting, No Diarrhea Genitourinary Symptoms: No Dysuria Musculoskeletal: No Back Pain, No Neck Pain Skin: Cellulitis, No Rash Neurological: No Dizziness, No Focal Weakness, No Sensory Changes Psychological: No Symptoms Endocrine: No Symptoms All Other Systems: Reviewed and Negative - Past Medical History Pertinent Past Medical History: Yes Neurological History: No Pertinent History ENT History: Cataracts Cardiac History: High Cholesterol, Hypertension Respiratory History: No Pertinent History Endocrine Medical History: No Pertinent History Musculoskeletal History: Fractures Psycho-Social History: Depression, Other Other Medical History: gout. rt wrist torn ligament and cartilage. PTSD - Past Surgical History Past Surgical History: Yes Neuro Surgical History: No Pertinent History Cardiac: No Pertinent History Respiratory: No Pertinent History Gastrointestinal: Cholecystectomy Genitourinary: No Pertinent History Musculoskeletal: Orthopedic Surgery Male Surgical History: Vasectomy Other Surgical History: right bicep, rt wrist surgery - Social History Smoking Status: Never smoker Exposure to second hand smoke: No Drug Use: none Patient Lives Alone: No - Social Determinants of Health Will the patient participate in the screening: Declined to provide - Nursing Vital Signs Nursing Vital Signs: Initial Vital Signs Temperature 98.0 F 11/01/23 11:52 Pulse Rate 90 06/23/24 11:52 Respiratory Rate 18 11/01/23 11:52 Blood Pressure 126/72 11/01/23 11:52 O2 Sat by Pulse Oximetry 98 11/01/23 11:52 Pain Scale Pain Intensity 0 - Physical Exam General Appearance: alert Eyes, Ears, Nose, Throat Exam: moist mucous membranes Neck Exam: non-tender, supple Cardiovascular/Respiratory Exam: chest non-tender, normal breath sounds, regular rate/rhythm, no respiratory distress Gastrointestinal/Abdominal Exam: non-tender, guarding Back Exam: normal inspection, No vertebral tenderness Hips Exam: bilateral: non-tender Legs Exam: bilateral leg: soft tissue tenderness, swelling Neuro/Tendon Exam: normal sensation, normal motor functions Mental Status Exam: alert, oriented x 3, cooperative Skin Exam: normal color, warm, dry SpO2: 98 - Course Nursing assessment & vital signs reviewed: Yes - Radiology Ultrasound Exam Venous Lower Extremity Ultrasound: discussed w/radiologist (no DVT) Ordered Tests: Active Orders 24 hr Category Date Time Status VENOUS BILATERAL EXTREMITY [US] Stat Exams 11/01/23 11:58 Taken CBC W DIFF Stat Lab 11/01/23 12:10 Completed CMP Stat Lab 11/01/23 12:10 Completed D-DIMER QUANTITATIVE Stat Lab 11/01/23 12:10 Completed Lab/Rad Data: Laboratory Result Diagrams 11/01/23 12:10 11/01/23 12:10 Laboratory Results 11/01/23 11/01/23 11/01/23 Range/Units 12:10 12:10 12:10 WBC 5.4 (4.23-9.07) x10^3/uL RBC 5.03 (4.63-6.08) x10^6/uL Hgb 15.7 (13.7-17.5) g/dL Hct 46.7 (40.1-51.0) % MCV 92.8 H (79.0-92.2) fL MCH 31.2 (25.7-32.2) pg MCHC 33.6 (32.3-36.5) g/dL RDW 13.2 (11.6-14.4) % Plt Count 131 L (163-337) x10^3/uL MPV 10.5 (9.4-12.4) fL Gran % 41.6 (34.0-67.9) % Immature Gran % (Auto) 0.4 (0.001-0.429) % Nucleat RBC Rel Count 0.0 (0.00-0.2) % Eos # (Auto) 0.24 (0.04-0.54) x10^3/uL Immature Gran # (Auto) 0.02 (0.001-0.031) x10^3u/L Absolute Lymphs (auto) 2.17 (1.32-3.57) x10^3/uL Absolute Monos (auto) 0.67 (0.30-0.82) x10^3/uL Absolute Nucleated RBC 0.00 (0.00-0.012) x10^3u/L Lymphocytes % 40.4 (21.8-53.1) % Monocytes % 12.5 H (5.3-12.2) % Eosinophils % 4.5 (0.8-7.0) % Basophils % 0.6 (0.2-1.2) % Absolute Granulocytes 2.24 (1.78-5.38) x10^3/uL Basophils # 0.03 (0.01-0.08) x10^3/uL D-Dimer 0.37 (0.0-0.50) mg/L Sodium 141 (135-145) mmol/L Potassium 4.3 (3.5-5.1) mmol/L Chloride 109 H (98-107) mmol/L Carbon Dioxide 22 (22-30) mmol/L Anion Gap 13.9 (5-15) MEQ/L BUN 14 (9-20) mg/dL Creatinine 0.93 (0.66-1.25) mg/dL Estimated GFR 100.0 ML/MIN Glucose 148 H (74-106) mg/dL Calcium 9.0 (8.4-10.2) mg/dL Total Bilirubin 0.50 (0.2-1.3) mg/dL AST 38 (17-59) U/L ALT 31 (0-50) U/L Alkaline Phosphatase 62 (38-126) U/L Serum Total Protein 6.4 (6.3-8.2) g/dL Albumin 3.7 (3.5-5.0) g/dL - Progress Progress: unchanged Counseled pt/family regarding: lab results, diagnosis, need for follow-up, rad results Medical Desision Making - Independent Historian Additional History obtained from: Spouse - Diagnostic Testing Diagnostic test were ordered, analyzed, and reviewed by me: Yes Radiological Interpretation: Other - Risk of complications Low Risk: Low risk of morbidity from additional dx testing or treatment - Departure Departure Disposition: Home Clinical Impression: Leg swelling Hypertension Qualifiers: Hypertension type: primary hypertension Qualified Code(s): I10 - Essential (primary) hypertension Gout Qualifiers: Gout site: unspecified site Gout etiology: idiopathic Chronicity: chronic Presence of tophus: without tophus Qualified Code(s): M1A.00X0 - Idiopathic chronic gout, unspecified site, without tophus (tophi) Condition: Stable Critical Care Time: No Referrals: [facility] [Primary Care Provider] - Follow up/PCP as directed Instructions: Swelling Additional Instructions: Discharge/Care Plan EAMON ECKERT was seen on 11/01/23 in the Emergency Room. 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 Prescriptions given: Discharge Note I have spoken with the patient and/or caregivers. I have explained the patient's condition, diagnosis and treatment plan based on the information available to me at this time. I have answered the patient's and/or caregiver's questions and addressed any concerns. The patient and/or caregivers have as good understanding of the patient's diagnosis, condition and treatment plan as can be expected at this point. The vital signs have been stable. The patient's condition is stable and appropriate for discharge from the emergency department. The patient will pursue further outpatient evaluation with the primary care physician or other designated or consulting physician as outlined in the discharge instructions. The patient and/or caregivers are agreeable to this plan of care and follow-up instructions have been explained in detail. The patient and/or caregivers have received these instruction. The patient/and or caregivers are aware that any significant change in condition or worsening of symptoms should prompt an immediate return to this or the closest emergency department or call 911. EAMON ECKERT was seen on 11/01/23 n the Emergency Room. At that time you were treated for an emergent condition, during your visit Laboratory, Radiology and/or other procedures may have been ordered. It is very important that you follow-up with your Primary Care Physician [facility] within the next 24-48 hours to review your Emergency Room visit and the final results of testing that was ordered. Some test results such as Urine Cultures, Blood Cultures, and other cultures if ordered will not be finalized for 24-48 hours. If you do not have a Primary Care Provider please call the medical records department at [phone] to obtain a copy of your results or you may sign into our patient portal to obtain these results by visiting us @ [email or web address] and completing the following steps: 1. Click on the Patient Portal link 2. Click the Patient Self Enrollment Link to complete the enrollment form and entering your 3. Once the enrollment form is completed you will receive an email with a temporary ID and password at the email address you provided. 4. Next choose a user name and password. Your user name must be at least 4 characters long and your password must be at least 4 characters long. 5. Choose a security question from the list and provide your answer to the question. If you already have signed into the Health Portal you may access your Health Care Information 01/12 by the following steps: 1. Login to our website @ [email or web address] 2. Enter your original user name and password. FAQS The [facility] Health Portal is an online tool that contains your Lab Results, Radiology Reports, Visit History, Discharge Instructions and Health Summary Lab and Radiology Results will not be available for 72 hours on the portal. The Portal is a secure site, passwords are encryted and URLs are re-written so they cannot be copied and pasted. You and authorized family members are the only ones who can access your Portal. Also there is a timeout feature that protects your information if you leave the Portal page open. If you have technical difficulty please use the Contact Us link on the page this will allow you to submit any questions you have regarding the Portal or you may contact the Medical Record Department at [phone] ext [phone]. Prescriptions: Chlorthalidone 25 mg PO DAILY #30 tablet
[2023-11-01 12:17] LABS: Absolute Neutrophil Ct (ANC) 2.24 x10^3/uL (1.78-5.38); BASOPHIL % 0.6 % (0.2-1.2); Basophil (Absolute #) 0.03 x10^3/uL (0.01-0.08); Eosinophil % 4.5 % (0.8-7.0); Eosinophil (Absolute #) 0.24 x10^3/uL (0.04-0.54); Hematocrit 46.7 % (40.1-51.0); Hemoglobin 15.7 g/dL (13.7-17.5); IMMATURE GRAN # 0.02 x10^3u/L (0.001-0.031); IMMATURE GRAN % 0.4 % (0.001-0.429); Lymphocyte (Absolute #) 2.17 x10^3/uL (1.32-3.57); Lymphocytes % 40.4 % (21.8-53.1); Mean Cell Volume 92.8 fL (79.0-92.2); Mean Corpuscular Hemoglobin 31.2 pg (25.7-32.2); Mean Corpuscular Hgb Concent. 33.6 g/dL (32.3-36.5); Mean Platelet Volume 10.5 fL (9.4-12.4); Monocyte (Absolute #) 0.67 x10^3/uL (0.30-0.82); Monocytes % 12.5 % (5.3-12.2); Neutrophil % 41.6 % (34.0-67.9); Platelet Count 131 x10^3/uL (163-337); Red Blood Count 5.03 x10^6/uL (4.63-6.08); Red Cell Distribution Width 13.2 % (11.6-14.4); White Blood Count 5.4 x10^3/uL (4.23-9.07)
[2023-11-01 12:29] LABS: ALBUMIN 3.7 g/dL (3.5-5.0); ANION GAP 13.9 MEQ/L (5-15); BILIRUBIN,TOTAL 0.5 mg/dL (0.2-1.3); Creatinine 1 0.93 mg/dL (0.66-1.25); Potassium 4.3 mmol/L (3.5-5.1); Total Protein 6.4 g/dL (6.3-8.2)
[2023-11-01 12:41] VITALS: BP 120/73
[2023-11-01 13:11] VITALS: PULSE 84; RESP 18
[2023-11-01 13:15] VITALS: O2SAT 98
--- NOTE | 2023-11-01 19:30 | XRAY ---
Indication: Bilateral swelling and pain. Two-dimensional sonogram and color Doppler imaging major venous vessels left and right leg performed. Comparison: None No thrombus seen in the examined deep venous vessels left and right leg including greater saphenous vein. Veins demonstrate normal compressibility. Venous waveforms are normal with and without augmentation. Impression: Left and right leg negative for DVT. Comment: Preliminary report was given.
== END 2023-11-01 13:22 | disposition home or self-care (01) ==
LOC: ED 11:33
DX: M79.89 Other specified soft tissue disorders (principal); I10 Essential (primary) hypertension; M1A.00X0 Idiopathic chronic gout, unspecified site, without tophus (tophi); E78.5 Hyperlipidemia, unspecified; Z79.52 Long term (current) use of systemic steroids; Z79.899 Other long term (current) drug therapy
CPT/HCPCS: 36415; 80053; 85025; 85379; 93970; 99283

== ENCOUNTER 2024-03-04 00:52 | Emergency (ER) | payer OTHER ==
[2024-03-04 01:11] VITALS: TEMP 99.3
--- NOTE | 2024-03-04 01:23 | ERPHSYRPT ---
- History of Present Illness Time Seen by Provider: 03/04/24 01:11 Source: patient Exam Limitations: no limitations Patient Subjective Stated Complaint: c/o of left elbow injury Triage Nursing Assessment: Pt brought to ED by with complaint of left elbow injury. Patient had a cyst removal on Thursday on his right ring finger, and believes as the staff were rolling him in stretcher, patient hit his elbow on door frame or on a cart. Patient rates pain 10/10, elbow is swollen and tender and redness noted. Pain with movement and to touch. Patient is hypertensive, tachycardic, skin w/n/d, pulses normal, pt doesn't appear to be in any distress at this time. Physician History: Pt states he was at the [facility] 3 days ago for a cyst removal on his right hand and while he was transported on a stretcher his left elbow hit a door frame with resultant pain and swelling in his left elbow. Allergies/Adverse Reactions: [id number] Reductase Inhibitor Allergy (Mild, Verified 03/04/24 01:11) Home Medications: Allopurinol 100 mg [Zyloprim 100 mg] 300 mg PO DAILY 08/17/23 [History] Ascorbic Acid 500 mg [Vitamin C 500 MG] 500 mg PO DAILY 08/17/23 [History] Cholecalciferol (Vitamin D3) [Vitamin D3] 25 mcg PO DAILY 08/17/23 [History] Colchicine 0.6 mg PO BID 08/17/23 [History] Cyclobenzaprine HCl 10 mg [Cyclobenzaprine 10 MG] 10 mg pe PO TIDPRN PRN 08/17/23 [History] Losartan Potassium 50 mg [Cozaar 50 MG] 50 mg PO DAILY 08/17/23 [History] Multivitamin 1 tab PO DAILY 08/17/23 [History] [place]-3 Fatty Acids/Fish Oil [Fish Oil 1,000 mg Capsule] 1 cap PO BID 08/17/23 [History] Omeprazole 40 mg PO BREAKFAST 08/17/23 [History] Prazosin HCl 1 mg PO HS 08/17/23 [History] Prednisone 20 mg [Deltasone 20 mg] 20 mg PO AC 08/17/23 [History] Sildenafil Citrate [Viagra] 25 mg PO HS PRN PRN 08/17/23 [History] Telmisartan 40 mg PO DAILY 08/17/23 [History] Testosterone Enanthate [Xyosted] 100 mg SQ DAILY 11/01/23 [History] Hx Tetanus, Diphtheria Vaccination/Date Given: Yes Hx Influenza Vaccination/Date Given: No (unknown) Hx Pneumococcal Vaccination/Date Given: No Travel Risk - International Travel Have you traveled outside of the country in past 3 weeks: No - Emerging Infectious Disease Are you exhibiting symptoms associated with any current EIDs: No - Review of Systems Musculoskeletal: Joint Pain (left elbow pain) - Past Medical History Pertinent Past Medical History: Yes Neurological History: No Pertinent History ENT History: Cataracts Cardiac History: High Cholesterol, Hypertension Respiratory History: No Pertinent History Endocrine Medical History: No Pertinent History Musculoskeletal History: Fractures GI Medical History: No Pertinent History History: No Pertinent History Psycho-Social History: Depression, Other Male Reproductive Disorders: No Pertinent History Other Medical History: gout. rt wrist torn ligament and cartilage. PTSD - Past Surgical History Past Surgical History: Yes Neuro Surgical History: No Pertinent History Cardiac: No Pertinent History Respiratory: No Pertinent History Gastrointestinal: Cholecystectomy Genitourinary: No Pertinent History Musculoskeletal: Orthopedic Surgery Male Surgical History: Vasectomy Other Surgical History: right bicep, rt wrist surgery, cysts removal right ring finger - Social History Smoking Status: Never smoker Exposure to second hand smoke: No Drug Use: none Patient Lives Alone: No - Social Determinants of Health Will the patient participate in the screening: Yes Do you worry about a steady place to live?: No Do you have any problems with any of the following?: No known problems In the past 12 months,have you had to go without utilities?: No Transportation Issues: No Has anyone in your support network made you feel unsafe?: No Have you or anyone in your house had to go without enough: No - Nursing Vital Signs Nursing Vital Signs: Initial Vital Signs Temperature 99.3 F 03/04/24 00:58 Pulse Rate 105 H 03/04/24 00:58 Respiratory Rate 20 03/04/24 00:58 Blood Pressure 158/83 03/04/24 00:58 O2 Sat by Pulse Oximetry 93 L 03/04/24 00:58 Pain Scale Pain Intensity 10 - Physical Exam General Appearance: alert Shoulder Exam: normal ROM Elbow/Forearm Exam: limited ROM (Left elbow has extension to 160 degrees, flexion to 90 degrees and is mildly tender, mildly edematous and faintly erythematous.) Wrist Exam: normal ROM Hand Exam: normal ROM Neuro/Tendon Exam: normal sensation Mental Status Exam: alert, cooperative SpO2: 93 O2 Delivery: Room Air - Course Nursing assessment & vital signs reviewed: Yes - Radiology Exams Left Elbow X-ray Interpretation: Interpreted by me, No Fracture Ordered Tests: Active Orders 24 hr Category Date Time Status ELBOW (MINIMUM 3 VIEWS) Stat Exams 03/04/24 02:01 Taken CBC W DIFF Stat Lab 03/04/24 01:40 Completed Medication Summary Discontinued Medications Generic Name Dose Route Start Last Admin Trade Name Freq PRN Reason Stop Dose Admin Hydrocodone Bitart/Acetaminophen 2 tab 03/04/24 01:17 03/04/24 01:29 Hydrocodone/Apap 5/325 1 Tab Tablet PO 03/04/24 01:18 2 tab STAT ONE Administration Hydrocodone Bitart/Acetaminophen Confirm 03/04/24 01:29 Hydrocodone/Apap 5/325 1 Tab Tablet Administered 03/04/24 01:30 Dose 2 tab .ROUTE .STK-MED ONE Hydrocodone Bitart/Acetaminophen Confirm 03/04/24 01:32 Hydrocodone/Apap 5/325 1 Tab Tablet Administered 03/04/24 01:33 Dose 1 tab .ROUTE .STK-MED ONE Clindamycin HCl 300 mg 03/04/24 01:27 03/04/24 01:39 Clindamycin Hcl 150 Mg Capsule PO 03/04/24 01:28 300 mg STAT ONE Administration Clindamycin HCl Confirm 03/04/24 01:39 Clindamycin Hcl 150 Mg Capsule Administered 03/04/24 01:40 Dose 300 mg .ROUTE .STK-MED ONE Lab/Rad Data: Laboratory Result Diagrams 03/04/24 01:40 Laboratory Results 03/04/24 Range/Units 01:40 WBC 9.6 H (4.23-9.07) x10^3/uL RBC 4.95 (4.63-6.08) x10^6/uL Hgb 15.3 (13.7-17.5) g/dL Hct 44.2 (40.1-51.0) % MCV 89.3 (79.0-92.2) fL MCH 30.9 (25.7-32.2) pg MCHC 34.6 (32.3-36.5) g/dL RDW 12.4 (11.6-14.4) % Plt Count 156 L (163-337) x10^3/uL MPV 10.4 (9.4-12.4) fL Gran % 67.1 (34.0-67.9) % Immature Gran % (Auto) 0.2 (0.001-0.429) % Nucleat RBC Rel Count 0.0 (0.00-0.2) % Eos # (Auto) 0.17 (0.04-0.54) x10^3/uL Immature Gran # (Auto) 0.02 (0.001-0.031) x10^3u/L Absolute Lymphs (auto) 1.81 (1.32-3.57) x10^3/uL Absolute Monos (auto) 1.11 H (0.30-0.82) x10^3/uL Absolute Nucleated RBC 0.00 (0.00-0.012) x10^3u/L Lymphocytes % 18.9 L (21.8-53.1) % Monocytes % 11.6 (5.3-12.2) % Eosinophils % 1.8 (0.8-7.0) % Basophils % 0.4 (0.2-1.2) % Absolute Granulocytes 6.42 H (1.78-5.38) x10^3/uL Basophils # 0.04 (0.01-0.08) x10^3/uL - Progress Progress: unchanged Counseled pt/family regarding: lab results, diagnosis, need for follow-up, rad results Medical Desision Making - Diagnostic Testing Diagnostic test were ordered, analyzed, and reviewed by me: Yes Radiological Interpretation: Interpreted by me - Departure Departure Disposition: Home Clinical Impression: Cellulitis of left elbow, Left elbow contusion Condition: Stable Critical Care Time: No Referrals: [facility]OSP[facility],'[facility] [Primary Care Provider] - Follow up/PCP as directed Instructions: Cellulitis (Skin Infection), Adult ED, Minor Contusion ED Additional Instructions: Follow up with private doctor tomorrow. Wear left arm sling for comfort. Prescriptions: Ketorolac Trometh 10 mg Tab [TORAdol 10 MG TABLET] 10 mg PO Q8HPRN PRN #14 tablet PRN Reason: Pain clindamycin HCL [Cleocin HCl] 300 mg PO Q6H #40 cap
[2024-03-04] MEDS: NORCO 5/325 MG PO ONE (01:29)
[2024-03-04] MEDS ORDERED: NORCO 5/325 MG ONE ×2 (01:29→01:32)
[2024-03-04] MEDS: CLEOCIN 150 MG CAPSULE PO ONE (01:39)
[2024-03-04] MEDS ORDERED: CLEOCIN 150 MG CAPSULE ONE (01:39)
[2024-03-04 01:45] LABS: Absolute Neutrophil Ct (ANC) 6.42 x10^3/uL (1.78-5.38); BASOPHIL % 0.4 % (0.2-1.2); Basophil (Absolute #) 0.04 x10^3/uL (0.01-0.08); Eosinophil % 1.8 % (0.8-7.0); Eosinophil (Absolute #) 0.17 x10^3/uL (0.04-0.54); Hematocrit 44.2 % (40.1-51.0); Hemoglobin 15.3 g/dL (13.7-17.5); IMMATURE GRAN # 0.02 x10^3u/L (0.001-0.031); IMMATURE GRAN % 0.2 % (0.001-0.429); Lymphocyte (Absolute #) 1.81 x10^3/uL (1.32-3.57); Lymphocytes % 18.9 % (21.8-53.1); Mean Cell Volume 89.3 fL (79.0-92.2); Mean Corpuscular Hemoglobin 30.9 pg (25.7-32.2); Mean Corpuscular Hgb Concent. 34.6 g/dL (32.3-36.5); Mean Platelet Volume 10.4 fL (9.4-12.4); Monocyte (Absolute #) 1.11 x10^3/uL (0.30-0.82); Monocytes % 11.6 % (5.3-12.2); Neutrophil % 67.1 % (34.0-67.9); Platelet Count 156 x10^3/uL (163-337); Red Blood Count 4.95 x10^6/uL (4.63-6.08); Red Cell Distribution Width 12.4 % (11.6-14.4); White Blood Count 9.6 x10^3/uL (4.23-9.07)
[2024-03-04 01:46] VITALS: RESP 18
[2024-03-04 02:02] VITALS: BP 129/91; PULSE 92
[2024-03-04 02:22] VITALS: O2SAT 93
--- NOTE | 2024-03-04 07:32 | XRAY ---
Indication: Pain following injury. Comparison: None 3 views left elbow demonstrates posterior soft tissue swelling versus bursitis. No other bony, articular, or soft tissue abnormalities.
== END 2024-03-04 02:36 | disposition home or self-care (01) ==
LOC: ED 00:52
DX: S50.02XA Contusion of left elbow, initial encounter (principal); W22.09XA Striking against other stationary object, initial encounter; Y92.239 Unspecified place in hospital as the place of occurrence of the external cause; L03.114 Cellulitis of left upper limb; E78.5 Hyperlipidemia, unspecified; I10 Essential (primary) hypertension; Z79.899 Other long term (current) drug therapy
CPT/HCPCS: 36415; 73080; 85025; 99283; A9270-GY

== ENCOUNTER 2024-04-04 07:25 | Emergency (ER) | payer OTHER ==
[2024-04-04 07:33] VITALS: TEMP 97.6; O2SAT 95
--- NOTE | 2024-04-04 08:11 | ERPHSYRPT ---
- History of Present Illness Time Seen by Provider: 04/04/24 07:28 Source: patient Exam Limitations: no limitations Patient Subjective Stated Complaint: pt here for pain and numbness to right 4th digit, he states he had a laceration repair to that finger on 03/02/24, and s tates the dissolvable suture on still there Triage Nursing Assessment: pt alert, resp easy, skin w/d/p. has white sutures to base of 4th digit Physician History: Patient is here for wound check/suture removal. Approximately 1 month ago, 03/02 patient had a ganglion cyst removed from his fourth right palmar surface finger. Patient states it was "embedded in his bone". We have no access to these records, he did not bring anything with him secondary to this occurring at the CT. Patient states that [facility]. He states that he did not go to this follow-up appointment. States that he has not seen any physician for this. He [facility] not [facility] the [facility]. States that he called the [facility] this morning complaining of the sutures bothering him. He states he was sent into the emergency department. We did attempt to call the [facility] to get records. We did leave a message and were unable to get a hold of any people in medical records. Allergies/Adverse Reactions: [id number] Reductase Inhibitor Allergy (Mild, Verified 04/04/24 07:31) Home Medications: Allopurinol 100 mg [Zyloprim 100 mg] 300 mg PO DAILY 08/17/23 [History] Ascorbic Acid 500 mg [Vitamin C 500 MG] 500 mg PO DAILY 08/17/23 [History] Cholecalciferol (Vitamin D3) [Vitamin D3] 25 mcg PO DAILY 08/17/23 [History] Colchicine 0.6 mg PO BID 08/17/23 [History] Cyclobenzaprine HCl 10 mg [Cyclobenzaprine 10 MG] 10 mg pe PO TIDPRN PRN 08/17/23 [History] Losartan Potassium 50 mg [Cozaar 50 MG] 50 mg PO DAILY 08/17/23 [History] Multivitamin 1 tab PO DAILY 08/17/23 [History] [place]-3 Fatty Acids/Fish Oil [Fish Oil 1,000 mg Capsule] 1 cap PO BID 08/17/23 [History] Omeprazole 40 mg PO BREAKFAST 08/17/23 [History] Prazosin HCl 1 mg PO HS 08/17/23 [History] Prednisone 20 mg [Deltasone 20 mg] 20 mg PO AC 08/17/23 [History] Sildenafil Citrate [Viagra] 25 mg PO HS PRN PRN 08/17/23 [History] Telmisartan 40 mg PO DAILY 08/17/23 [History] Testosterone Enanthate [Xyosted] 100 mg SQ DAILY 11/01/23 [History] Hx Tetanus, Diphtheria Vaccination/Date Given: Yes Hx Influenza Vaccination/Date Given: No (unknown) Hx Pneumococcal Vaccination/Date Given: No Travel Risk - International Travel Have you traveled outside of the country in past 3 weeks: No - Emerging Infectious Disease Are you exhibiting symptoms associated with any current EIDs: No - Past Medical History Pertinent Past Medical History: Yes Neurological History: No Pertinent History ENT History: Cataracts Cardiac History: High Cholesterol, Hypertension Respiratory History: No Pertinent History Endocrine Medical History: No Pertinent History Musculoskeletal History: Fractures GI Medical History: No Pertinent History History: No Pertinent History Psycho-Social History: Depression, Other Male Reproductive Disorders: No Pertinent History Other Medical History: gout. rt wrist torn ligament and cartilage. PTSD - Past Surgical History Past Surgical History: Yes Neuro Surgical History: No Pertinent History Cardiac: No Pertinent History Respiratory: No Pertinent History Gastrointestinal: Cholecystectomy Genitourinary: No Pertinent History Musculoskeletal: Orthopedic Surgery Male Surgical History: Vasectomy Other Surgical History: right bicep, rt wrist surgery, cysts removal right ring finger - Social History Smoking Status: Never smoker Exposure to second hand smoke: No Drug Use: none Patient Lives Alone: No - Social Determinants of Health Will the patient participate in the screening: Yes Do you worry about a steady place to live?: No Do you have any problems with any of the following?: No known problems In the past 12 months,have you had to go without utilities?: No Transportation Issues: No Has anyone in your support network made you feel unsafe?: No Have you or anyone in your house had to go without enough: No - Nursing Vital Signs Nursing Vital Signs: Initial Vital Signs Temperature 97.6 F 04/04/24 07:32 Pulse Rate 95 H 04/04/24 07:32 Respiratory Rate 18 04/04/24 07:32 Blood Pressure 192/129 04/04/24 07:32 O2 Sat by Pulse Oximetry 95 04/04/24 07:32 Pain Scale Pain Intensity 2 - Physical Exam SpO2: 95 Comments: 04/04/24 08:14 Review of Systems Constitutional: Negative for fever. HENT: Negative for congestion. Respiratory: Negative for shortness of breath. Cardiovascular: Negative for chest pain. Gastrointestinal: Negative for abdominal pain. Genitourinary: Negative for dysuria. Musculoskeletal: Negative for back pain. Skin: Negative for rash. Neurological: Negative for headaches. Psychiatric/Behavioral: Negative for behavioral problems. All other systems reviewed and are negative. Physical Exam Vitals signs and nursing note reviewed. Constitutional: Appearance: Patient is well-developed. HENT: Head: Normocephalic and atraumatic. Eyes: Conjunctiva/sclera: Conjunctivae normal. Neck: Musculoskeletal: Normal range of motion. Trachea: No tracheal deviation. Cardiovascular: Rate and Rhythm: Normal rate. Pulmonary: Effort: Pulmonary effort is normal. No respiratory distress. Abdominal: Palpations: Abdomen is soft. Musculoskeletal: General: Right fourth digit demonstrates 3 external sutures. Minimal discharge. No erythema, redness. Very low suspicion for infection or deeper infection. No obvious deformity, sensation intact, 2+ capillary refill, 2 point tactile discrimination intact. 5 out of 5 strength. Full range of motion with seom pain. Compartments are soft, nontender. Overlying skin shows no tenting, bruising, ecchymosis. Skin: General: Skin is warm and dry. Neurological/ Psychiatric: Mental Status: Mental status, behavior, interaction with environment is appropriate for patient's age and condition - Course Nursing assessment & vital signs reviewed: Yes Lab/Rad Data: Performed by: Armani Wolfe MD Authorized by: Armani Wolfe MD Consent: Verbal consent obtained. Risks and benefits: risks, benefits and alternatives were discussed Consent given by: patient Patient understanding: patient states understanding of the procedure being performed Patient consent: the patient's understanding of the procedure matches consent given Patient identity confirmed: verbally with patient and arm band Time out: Immediately prior to procedure a "time out" was called to verify the correct patient, procedure, equipment, database support and site/side marked as required. Body area: 3 sutures right fourth digit Wound Appearance: clean Post-removal: antibiotic ointment applied Patient tolerance: Patient tolerated the procedure well with no immediate complications. - Progress Progress: improved Progress Note: 04/04/24 08:16 Patient was adamant that he wanted these sutures out today. I did state that we should wait to [facility] and/or patient should return to his [facility] for close follow-up. Patient states that he would go home and take the sutures out himself. Therefore, I did feel it was the right thing to do to take out the sutures today. See procedure note above. Out of an abundance of caution we will also place patient on antibiotics to cover any potential infection. There does not appear to be a deeper infection today on my exam. [facility] will [facility] today for [facility]. He will return here sooner for any new or changing symptoms. Otherwise he will take his antibiotics as prescribed. Counseled pt/family regarding: diagnosis, need for follow-up - Departure Departure Disposition: In-patient Admission Clinical Impression: Visit for suture removal, Visit for wound check Condition: Stable Critical Care Time: No Referrals: [facility]OSP[facility],'[facility] [Primary Care Provider] - Follow up/PCP as directed Instructions: Wound Care (DC) Prescriptions: Amoxicillin 500 mg Cap [Amoxil 500 mg] 500 mg PO BID #20 cap
[2024-04-04 08:33] VITALS: BP 125/88; PULSE 78; RESP 16
== END 2024-04-04 08:33 | disposition home or self-care (01) ==
LOC: ED 07:25
DX: Z48.02 Encounter for removal of sutures (principal); E78.5 Hyperlipidemia, unspecified; I10 Essential (primary) hypertension; Z79.899 Other long term (current) drug therapy
CPT/HCPCS: 99282; 99283

== ENCOUNTER 2024-06-10 05:13 | Emergency (ER) | payer OTHER ==
[2024-06-10 05:36] VITALS: TEMP 98.2
--- NOTE | 2024-06-10 06:34 | ERPHSYRPT ---
- History of Present Illness Historian: patient Exam Limitations: no limitations Patient Subjective Stated Complaint: c/o right sided flank and abdomen pain Triage Nursing Assessment: patient brought to ED by son with c/o right sided flank and abdomen pain. patient rates pain 10/10 that started on 06/05/2024 and has gotten worse. patient states it really hurts to breath or to reach down. patient is slightly hypertensive, tachycardic, gait steady, patient states heat makes it feel better. patient is restless and cannot sleep due to the pain. Hx Tetanus, Diphtheria Vaccination/Date Given: Yes Hx Influenza Vaccination/Date Given: Yes Hx Pneumococcal Vaccination/Date Given: No <DOREEN CLAYTON - Last Filed: 06/10/24 06:29> <ARTURO RODRIGUEZ - Last Filed: 06/10/24 08:38> - History of Present Illness Time Seen by Provider: 06/10/24 06:02 Physician History: 49-year-old male with history of gout presenting to the ER with complaint of right flank/right-sided abdominal pain with some radiation to the back for the last 3 days with progressive worsening. Patient reports pain aggravation with activity and having difficulty getting in and out of the car. On presentation patient reports 10/10 intensity pain with associated nausea and dry heaving but no vomiting. Denies any constipation or diarrhea. Denies any history of back pain in the past. Denies any lower extremity pain radiation. (DOREEN CLAYTON) Allergies/Adverse Reactions: [id number] Reductase Inhibitor Allergy (Mild, Verified 06/10/24 05:36) Home Medications: Ascorbic Acid 500 mg [Vitamin C 500 MG] 500 mg PO DAILY 08/17/23 [History] Cholecalciferol (Vitamin D3) [Vitamin D3] 25 mcg PO DAILY 08/17/23 [History] Colchicine 0.6 mg PO UD 08/17/23 [History] Multivitamin 1 tab PO DAILY 08/17/23 [History] [place]-3 Fatty Acids/Fish Oil [Fish Oil 1,000 mg Capsule] 1 cap PO BID 08/17/23 [History] Omeprazole 40 mg PO BREAKFAST 08/17/23 [History] Prazosin HCl 1 mg PO HS 08/17/23 [History] Sildenafil Citrate [Viagra] 25 mg PO HS PRN PRN 08/17/23 [History] Telmisartan 40 mg PO DAILY 08/17/23 [History] carvediloL [Carvedilol] 25 mg PO BID 06/10/24 [History] Travel Risk - International Travel Have you traveled outside of the country in past 3 weeks: No - Emerging Infectious Disease Are you exhibiting symptoms associated with any current EIDs: No <DOREEN CLAYTON - Last Filed: 06/10/24 06:29> - Review of Systems Constitutional: No Symptoms Eyes: No Symptoms Ears, Nose, & Throat: No Symptoms Respiratory: No Symptoms Cardiac: No Symptoms Abdominal/Gastrointestinal: Abdominal Pain, Nausea Genitourinary Symptoms: Flank Pain Musculoskeletal: Arthralgias, Back Pain Skin: No Symptoms Neurological: No Symptoms <DOREEN CLAYTON - Last Filed: 06/10/24 06:29> - Past Medical History Pertinent Past Medical History: Yes Neurological History: No Pertinent History ENT History: Cataracts Cardiac History: High Cholesterol, Hypertension Respiratory History: No Pertinent History Endocrine Medical History: No Pertinent History Musculoskeletal History: Fractures GI Medical History: No Pertinent History History: No Pertinent History Psycho-Social History: Depression, Other Male Reproductive Disorders: No Pertinent History Other Medical History: gout. rt wrist torn ligament and cartilage, bicep tears. PTSD - Past Surgical History Past Surgical History: Yes Neuro Surgical History: No Pertinent History Cardiac: No Pertinent History Respiratory: No Pertinent History Gastrointestinal: Cholecystectomy Genitourinary: No Pertinent History Musculoskeletal: Orthopedic Surgery Male Surgical History: Vasectomy Other Surgical History: right and left bicep, rt wrist surgery, cysts removal right ring finger - Social History Smoking Status: Never smoker Exposure to second hand smoke: No Drug Use: none Patient Lives Alone: No - Social Determinants of Health Will the patient participate in the screening: Yes Do you worry about a steady place to live?: No Do you have any problems with any of the following?: No known problems In the past 12 months,have you had to go without utilities?: No Transportation Issues: No Has anyone in your support network made you feel unsafe?: No Have you or anyone in your house had to go without enough: No <DOREEN CLAYTON - Last Filed: 06/10/24 06:29> - Physical Exam General Appearance: no apparent distress Eye Exam: PERRL/EOMI Neck Exam: normal inspection, full range of motion Respiratory Exam: normal breath sounds, lungs clear Cardiovascular Exam: regular rate/rhythm, normal heart sounds Gastrointestinal/Abdomen Exam: soft, normal bowel sounds, tenderness (Right upper abdomen), No guarding Back Exam: normal inspection, CVA tenderness (Right side), decreased range of motion, muscle spasm, No vertebral tenderness Extremity Exam: normal inspection, normal range of motion Neurologic Exam: alert, oriented x 3, cooperative Skin Exam: normal color SpO2 Interpretation: normal SpO2: 95 O2 Delivery: Room Air <DOREEN CLAYTON - Last Filed: 06/10/24 06:29> - Nursing Vital Signs Nursing Vital Signs: Initial Vital Signs Temperature 98.2 F 06/10/24 05:23 Pulse Rate 110 H 06/10/24 05:23 Respiratory Rate 21 06/10/24 05:23 Blood Pressure 139/81 06/10/24 05:23 O2 Sat by Pulse Oximetry 95 06/10/24 05:23 Pain Scale Pain Intensity [Right Lateral 10 Back] Pain Intensity 10 Ordered Tests: Active Orders 24 hr Category Date Time Status IV Insertion STAT Care 06/10/24 06:28 Active ABDOMEN AND PELVIS W/0 CONTRAS [CT] Stat Exams 06/10/24 06:28 Taken CBC W DIFF Stat Lab 06/10/24 06:50 Completed CMP Stat Lab 06/10/24 06:50 Completed LIPASE Stat Lab 06/10/24 06:50 Completed TROPONIN Q4H Lab 06/10/24 06:50 Completed TROPONIN Q4H Lab 06/10/24 10:30 Ordered TROPONIN Q4H Lab 06/10/24 14:30 Ordered UA W/RFX UR CULTURE Stat Lab 06/10/24 06:28 Completed Medication Summary Discontinued Medications Generic Name Dose Route Start Last Admin Trade Name Freq PRN Reason Stop Dose Admin Morphine Sulfate 4 mg 06/10/24 06:28 06/10/24 06:47 Morphine Sulfate 4 Mg/Ml Injection IV 06/10/24 06:29 4 mg STAT ONE Administration Morphine Sulfate Confirm 06/10/24 06:45 Morphine Sulfate 4 Mg/Ml Injection Administered 06/10/24 06:46 Dose 4 mg .ROUTE .STK-MED ONE Ondansetron HCl 4 mg 06/10/24 06:28 06/10/24 06:46 Ondansetron Hcl 4 Mg/2 Ml Vial IV 06/10/24 06:29 4 mg STAT ONE Administration Ondansetron HCl Confirm 06/10/24 06:45 Ondansetron Hcl 4 Mg/2 Ml Vial Administered 06/10/24 06:46 Dose 4 mg .ROUTE .STK-MED ONE Lab/Rad Data: Laboratory Result Diagrams 06/10/24 06:50 06/10/24 06:50 Laboratory Results 06/10/24 06/10/24 06/10/24 Range/Units 06:50 06:50 06:50 WBC 10.2 H (4.23-9.07) x10^3/uL RBC 4.75 (4.63-6.08) x10^6/uL Hgb 14.3 (13.7-17.5) g/dL Hct 41.3 (40.1-51.0) % MCV 86.9 (79.0-92.2) fL MCH 30.1 (25.7-32.2) pg MCHC 34.6 (32.3-36.5) g/dL RDW 12.4 (11.6-14.4) % Plt Count 176 (163-337) x10^3/uL MPV 10.2 (9.4-12.4) fL Gran % 60.1 (34.0-67.9) % Immature Gran % (Auto) 0.4 (0.001-0.429) % Nucleat RBC Rel Count 0.0 (0.00-0.2) % Eos # (Auto) 0.18 (0.04-0.54) x10^3/uL Immature Gran # (Auto) 0.04 H (0.001-0.031) x10^3u/L Absolute Lymphs (auto) 2.42 (1.32-3.57) x10^3/uL Absolute Monos (auto) 1.38 H (0.30-0.82) x10^3/uL Absolute Nucleated RBC 0.00 (0.00-0.012) x10^3u/L Lymphocytes % 23.8 (21.8-53.1) % Monocytes % 13.6 H (5.3-12.2) % Eosinophils % 1.8 (0.8-7.0) % Basophils % 0.3 (0.2-1.2) % Absolute Granulocytes 6.12 H (1.78-5.38) x10^3/uL Basophils # 0.03 (0.01-0.08) x10^3/uL Sodium 136 (135-145) mmol/L Potassium 4.9 (3.5-5.1) mmol/L Chloride 103 (98-107) mmol/L Carbon Dioxide 20 L (22-30) mmol/L Anion Gap 18.1 H (5-15) MEQ/L BUN 22 H (9-20) mg/dL Creatinine 0.91 (0.66-1.25) mg/dL Estimated GFR 102.0 ML/MIN Glucose 117 H (74-106) mg/dL Calcium 9.6 (8.4-10.2) mg/dL Total Bilirubin 0.90 (0.2-1.3) mg/dL AST 69 H (17-59) U/L ALT 55 H (0-50) U/L Alkaline Phosphatase 102 (38-126) U/L Troponin I < 0.012 (0.000-0.033) ng/mL Serum Total Protein 8.0 (6.3-8.2) g/dL Albumin 4.9 (3.5-5.0) g/dL Lipase 116 (23-300) U/L Urine Color (Yellow) Urine Appearance (Clear) Urine pH (4.6-8.0) Ur Specific [place] (1.005-1.030) Urine Protein (Negative) Urine Glucose (UA) (Negative) mg/dL Urine Ketones (Negative) Urine Blood (Negative) Urine Nitrite (Negative) Urine Bilirubin (Negative) Urine Urobilinogen (0.2) mg/dL Ur Leukocyte Esterase (Negative) U Hyaline Cast (Auto) (0-2) /LPF Urine Microscopic RBC (0-5) /HPF Urine Microscopic WBC (0-5) /HPF Ur Epithelial Cells (None Seen) /HPF Urine Bacteria (None Seen) /HPF Urine Culture Reflexed (NO) 06/10/24 Range/Units 06:28 WBC (4.23-9.07) x10^3/uL RBC (4.63-6.08) x10^6/uL Hgb (13.7-17.5) g/dL Hct (40.1-51.0) % MCV (79.0-92.2) fL MCH (25.7-32.2) pg MCHC (32.3-36.5) g/dL RDW (11.6-14.4) % Plt Count (163-337) x10^3/uL MPV (9.4-12.4) fL Gran % (34.0-67.9) % Immature Gran % (Auto) (0.001-0.429) % Nucleat RBC Rel Count (0.00-0.2) % Eos # (Auto) (0.04-0.54) x10^3/uL Immature Gran # (Auto) (0.001-0.031) x10^3u/L Absolute Lymphs (auto) (1.32-3.57) x10^3/uL Absolute Monos (auto) (0.30-0.82) x10^3/uL Absolute Nucleated RBC (0.00-0.012) x10^3u/L Lymphocytes % (21.8-53.1) % Monocytes % (5.3-12.2) % Eosinophils % (0.8-7.0) % Basophils % (0.2-1.2) % Absolute Granulocytes (1.78-5.38) x10^3/uL Basophils # (0.01-0.08) x10^3/uL Sodium (135-145) mmol/L Potassium (3.5-5.1) mmol/L Chloride (98-107) mmol/L Carbon Dioxide (22-30) mmol/L Anion Gap (5-15) MEQ/L BUN (9-20) mg/dL Creatinine (0.66-1.25) mg/dL Estimated GFR ML/MIN Glucose (74-106) mg/dL Calcium (8.4-10.2) mg/dL Total Bilirubin (0.2-1.3) mg/dL AST (17-59) U/L ALT (0-50) U/L Alkaline Phosphatase (38-126) U/L Troponin I (0.000-0.033) ng/mL Serum Total Protein (6.3-8.2) g/dL Albumin (3.5-5.0) g/dL Lipase (23-300) U/L Urine Color Yellow (Yellow) Urine Appearance Clear (Clear) Urine pH 5.5 (4.6-8.0) Ur Specific [place] 1.020 (1.005-1.030) Urine Protein Negative (Negative) Urine Glucose (UA) Negative (Negative) mg/dL Urine Ketones Negative (Negative) Urine Blood Negative (Negative) Urine Nitrite Negative (Negative) Urine Bilirubin Negative (Negative) Urine Urobilinogen 0.2 (0.2) mg/dL Ur Leukocyte Esterase Negative (Negative) U Hyaline Cast (Auto) NONE SEEN (0-2) /LPF Urine Microscopic RBC 0-2 (0-5) /HPF Urine Microscopic WBC 0-2 (0-5) /HPF Ur Epithelial Cells None Seen (None Seen) /HPF Urine Bacteria None Seen (None Seen) /HPF Urine Culture Reflexed NO (NO) <DOREEN CLAYTON - Last Filed: 06/10/24 06:29> - Progress Progress: improved, pain not gone completely, re-examined Counseled pt/family regarding: lab results, diagnosis, need for follow-up, rad results <ARTURO RODRIGUEZ - Last Filed: 06/10/24 08:38> - Progress Progress Note: 06/10/24 06:56 49-year-old is evaluated in the ER for right flank/right-sided back pain. Patient has no midline tenderness. No radiation to lower extremities. No UTI symptoms. He is given symptomatic treatment, and acute abdomen workup ordered including CT abdomen pelvis without contrast which is pending. Care is transferred to Dr. Rodriguez at end of my shift for reevaluation and final disposition (DOREEN CLAYTON) 06/10/24 08:08 I interpreted the patient's laboratory data results. Based on the laboratory results that have returned, there is no acute, emergent medical issue. We are awaiting the urinalysis. CT scan of the abdomen and pelvis without contrast was interpreted by the radiologist and I reviewed the impression. The impression states nonobstructing right renal punctate stone. Fatty liver present. Normal appendix. Nothing acute. 06/10/24 08:34 The urinalysis was interpreted by me. There is no evidence of urinary tract infection. (ARTURO RODRIGUEZ) Medical Desision Making - Diagnostic Testing Diagnostic test were ordered, analyzed, and reviewed by me: Yes Radiological Interpretation: Reviewed by me, Teleradiologist Report - Risk of complications The pt has a mod risk of morbidity or mortality based on: Need for prescription drug management <ARTURO RODRIGUEZ - Last Filed: 06/10/24 08:38> <DOREEN CLAYTON - Last Filed: 06/10/24 06:29> - Departure Departure Disposition: Home Critical Care Time: No <ARTURO RODRIGUEZ - Last Filed: 06/10/24 08:38> - Departure Clinical Impression: Back pain Condition: Stable Referrals: [facility]OSP[facility],'S [Primary Care Provider] - Follow up/PCP as directed Additional Instructions: Take your medications as prescribed. Call your primary care provider today, 06/10/2024, to make arrangements for follow-up appointment for further evaluation and management. Prescriptions: Prednisone 10 mg [Deltasone 10 mg] 10 mg PO TID #12 tablet Orphenadrine Citrate 100 mg [Norflex 100 MG Tablet] 100 mg PO BID #10 tab
[2024-06-10] MEDS ORDERED: Zofran 4 MG/2 ML VIAL ONE (06:45)
[2024-06-10] MEDS ORDERED: MORPHINE SULFATE 4 MG INJ ONE (06:45)
[2024-06-10] MEDS: Zofran 4 MG/2 ML VIAL IV ONE (06:46)
[2024-06-10] MEDS: MORPHINE SULFATE 4 MG INJ IV ONE (06:47)
[2024-06-10 06:56] LABS: Absolute Neutrophil Ct (ANC) 6.12 x10^3/uL (1.78-5.38); BASOPHIL % 0.3 % (0.2-1.2); Basophil (Absolute #) 0.03 x10^3/uL (0.01-0.08); Eosinophil % 1.8 % (0.8-7.0); Eosinophil (Absolute #) 0.18 x10^3/uL (0.04-0.54); Hematocrit 41.3 % (40.1-51.0); Hemoglobin 14.3 g/dL (13.7-17.5); IMMATURE GRAN # 0.04 x10^3u/L (0.001-0.031); IMMATURE GRAN % 0.4 % (0.001-0.429); Lymphocyte (Absolute #) 2.42 x10^3/uL (1.32-3.57); Lymphocytes % 23.8 % (21.8-53.1); Mean Cell Volume 86.9 fL (79.0-92.2); Mean Corpuscular Hemoglobin 30.1 pg (25.7-32.2); Mean Corpuscular Hgb Concent. 34.6 g/dL (32.3-36.5); Mean Platelet Volume 10.2 fL (9.4-12.4); Monocyte (Absolute #) 1.38 x10^3/uL (0.30-0.82); Monocytes % 13.6 % (5.3-12.2); Neutrophil % 60.1 % (34.0-67.9); Platelet Count 176 x10^3/uL (163-337); Red Blood Count 4.75 x10^6/uL (4.63-6.08); Red Cell Distribution Width 12.4 % (11.6-14.4); White Blood Count 10.2 x10^3/uL (4.23-9.07)
[2024-06-10 06:58] VITALS: PULSE 103; RESP 16
[2024-06-10 07:29] LABS: ALBUMIN 4.9 g/dL (3.5-5.0); ANION GAP 18.1 MEQ/L (5-15); BILIRUBIN,TOTAL 0.9 mg/dL (0.2-1.3); Calcium 9.6 mg/dL (8.4-10.2); Creatinine 1 0.91 mg/dL (0.66-1.25); Potassium 4.9 mmol/L (3.5-5.1)
[2024-06-10 08:29] LABS: Appearance Clear (Clear); Bacteria None Seen /HPF (None Seen); Bilirubin Negative (Negative); Blood Negative (Negative); Epithelial Cells None Seen /HPF (None Seen); Glucose, Urine Negative (Negative); Hyaline Casts NONE SEEN /LPF (0-2); Ketones Negative (Negative); Leukocyte Esterase Negative (Negative); Nitrite Negative (Negative); Ph 5.5 (4.6-8.0); Protein,Urine Dip Negative (Negative); RBC 0-2 /HPF (0-5); Urobilinogen 0.2 mg/dL (0.2); WBC 0-2 /HPF (0-5)
[2024-06-10 08:37] VITALS: BP 139/88; O2SAT 91
--- NOTE | 2024-06-10 09:39 | XRAY ---
Indication: Back/flank pain. Multiple contiguous axial images obtained through the abdomen and pelvis without contrast using renal stone protocol. Comparison: None Lung bases demonstrates mild scattered subsegmental atelectasis/scarring bilaterally. No infiltrate or effusion. Heart not enlarged. Right lower kidney demonstrate nonobstructing punctate calculus. No other renal calculus or evidence for obstructive uropathy in either system. Noncontrasted stomach and bowel loops appear nonobstructed with normal appendix. Incidental 22 cm fatty liver, cholecystectomy, and splenic calcified granulomas. No free fluid/air. Remaining liver, pancreas, spleen, adrenal glands, kidneys, ureters, bladder, and aorta are unremarkable for noncontrast exam. Osseous structures intact with minimal degenerative changes throughout thoracolumbar spine. Impression: 1. Nonobstructing right renal punctate calculus, bibasilar atelectasis/scarring, fatty liver, and degenerative spondylosis. 2. Remaining CT abdomen/pelvis without contrast exam is negative.
== END 2024-06-10 08:45 | disposition home or self-care (01) ==
LOC: ED 05:13
DX: M54.9 Dorsalgia, unspecified (principal); R10.9 Unspecified abdominal pain; R11.0 Nausea; E78.5 Hyperlipidemia, unspecified; I10 Essential (primary) hypertension; Z79.52 Long term (current) use of systemic steroids; Z79.899 Other long term (current) drug therapy
CPT/HCPCS: 36415; 74176; 80053; 81001; 83690; 84484; 85025; 96374; 96375; 99284; J2270; J2405

== ENCOUNTER 2024-06-12 17:34 | Emergency (ER) | payer OTHER ==
[2024-06-12 20:02] VITALS: TEMP 99.8
[2024-06-12 22:29] LABS: Absolute Neutrophil Ct (ANC) 7.26 x10^3/uL (1.78-5.38); BASOPHIL % 0.3 % (0.2-1.2); Basophil (Absolute #) 0.04 x10^3/uL (0.01-0.08); Eosinophil % 0.8 % (0.8-7.0); Hematocrit 40.1 % (40.1-51.0); IMMATURE GRAN # 0.03 x10^3u/L (0.001-0.031); IMMATURE GRAN % 0.3 % (0.001-0.429); Lymphocyte (Absolute #) 2.71 x10^3/uL (1.32-3.57); Lymphocytes % 22.9 % (21.8-53.1); Mean Cell Volume 87.7 fL (79.0-92.2); Mean Corpuscular Hemoglobin 30.6 pg (25.7-32.2); Mean Corpuscular Hgb Concent. 34.9 g/dL (32.3-36.5); Mean Platelet Volume 9.9 fL (9.4-12.4); Monocyte (Absolute #) 1.69 x10^3/uL (0.30-0.82); Monocytes % 14.3 % (5.3-12.2); Neutrophil % 61.4 % (34.0-67.9); Platelet Count 200 x10^3/uL (163-337); Red Blood Count 4.57 x10^6/uL (4.63-6.08); Red Cell Distribution Width 12.5 % (11.6-14.4); White Blood Count 11.8 x10^3/uL (4.23-9.07)
[2024-06-12 22:51] LABS: ALBUMIN 4.7 g/dL (3.5-5.0); ANION GAP 18.3 MEQ/L (5-15); Calcium 9.3 mg/dL (8.4-10.2); Creatinine 1 0.98 mg/dL (0.66-1.25); EST GLOMERULAR FILTRATION RATE 93.4 ML/MIN; Potassium 4.2 mmol/L (3.5-5.1); Total Protein 8.2 g/dL (6.3-8.2)
--- NOTE | 2024-06-13 00:25 | ERPHSYRPT ---
- History of Present Illness Time Seen by Provider: 06/12/24 20:30 Source: patient Exam Limitations: no limitations Patient Subjective Stated Complaint: rt foot pain and back pain, "it's my gout" Triage Nursing Assessment: Pt brought back in wheelchair. Pt c/o "gout" in his rt foot and his back. Pt was seen here in this ER on Thursday for the same thing and treated but states, "it's not any better". Pt informed me that he's been trying to lift and pull himself up so maybe that's why my back hurts. Rt foot is not swollen or red. Physician History: 49yo m presents via private vehicle for right ankle/foot pain that he reports started on 06/10/24. Pt was treated in this ED for gout flare, was sent home w/ muscle relaxers and indomethacin. Pt reports he rolled his ankle slightly today when he stepped on a shoe and his ankle has been very painful and slightly red/swollen since. Pt does not endorse any other trauma to the area. Pt endorses some lumbar back pain as well that he believes started over the past few days. Pt denies any fevers, falls, trauma, cp, sob, n/v/d. Lower Extremities Pain: foot: right, ankle: right Modifying Factors: Improves With: nothing Allergies/Adverse Reactions: [id number] Reductase Inhibitor Allergy (Mild, Verified 06/12/24 19:56) Home Medications: Ascorbic Acid 500 mg [Vitamin C 500 MG] 500 mg PO DAILY 08/17/23 [History] Cholecalciferol (Vitamin D3) [Vitamin D3] 25 mcg PO DAILY 08/17/23 [History] Colchicine 0.6 mg PO UD 08/17/23 [History] Multivitamin 1 tab PO DAILY 08/17/23 [History] [place]-3 Fatty Acids/Fish Oil [Fish Oil 1,000 mg Capsule] 1 cap PO BID 08/17/23 [History] Omeprazole 40 mg PO BREAKFAST 08/17/23 [History] Prazosin HCl 1 mg PO HS 08/17/23 [History] Sildenafil Citrate [Viagra] 25 mg PO HS PRN PRN 08/17/23 [History] carvediloL [Carvedilol] 25 mg PO BID 06/10/24 [History] Hx Tetanus, Diphtheria Vaccination/Date Given: Yes Hx Influenza Vaccination/Date Given: Yes Hx Pneumococcal Vaccination/Date Given: No Travel Risk - International Travel Have you traveled outside of the country in past 3 weeks: No - Emerging Infectious Disease Are you exhibiting symptoms associated with any current EIDs: No - Review of Systems Constitutional: No Symptoms Respiratory: No Symptoms Cardiac: No Symptoms Abdominal/Gastrointestinal: No Symptoms Musculoskeletal: Arthralgias, Joint Redness, Joint Pain, Joint Swelling Skin: No Symptoms - Past Medical History Pertinent Past Medical History: Yes Neurological History: No Pertinent History ENT History: Cataracts Cardiac History: High Cholesterol, Hypertension Respiratory History: No Pertinent History Endocrine Medical History: No Pertinent History Musculoskeletal History: Fractures GI Medical History: Gallbladder Disease History: No Pertinent History Psycho-Social History: Depression, Other Male Reproductive Disorders: No Pertinent History Other Medical History: gout. rt wrist torn ligament and cartilage, bicep tears. PTSD - Past Surgical History Past Surgical History: Yes Neuro Surgical History: No Pertinent History Cardiac: No Pertinent History Respiratory: No Pertinent History Gastrointestinal: Cholecystectomy Genitourinary: No Pertinent History Musculoskeletal: Orthopedic Surgery Male Surgical History: Vasectomy Other Surgical History: right and left bicep, rt wrist surgery, cysts removal right ring finger - Social History Smoking Status: Never smoker Exposure to second hand smoke: No Drug Use: none Patient Lives Alone: No - Social Determinants of Health Will the patient participate in the screening: Yes Do you worry about a steady place to live?: No Do you have any problems with any of the following?: No known problems In the past 12 months,have you had to go without utilities?: No Transportation Issues: No Has anyone in your support network made you feel unsafe?: No Have you or anyone in your house had to go without enough: No - Nursing Vital Signs Nursing Vital Signs: Initial Vital Signs Temperature 99.8 F 06/12/24 20:00 Pulse Rate 102 H 06/12/24 20:00 Respiratory Rate 20 06/12/24 20:00 Blood Pressure 167/114 06/12/24 20:00 O2 Sat by Pulse Oximetry 96 06/12/24 20:00 Pain Scale Pain Intensity [Right Foot] 10 Pain Intensity 10 - Physical Exam General Appearance: no apparent distress, alert Cardiovascular/Respiratory Exam: chest non-tender, normal breath sounds, regular rate/rhythm, heart sounds normal, no respiratory distress Gastrointestinal/Abdominal Exam: non-tender, soft Back Exam: normal inspection, No vertebral tenderness Legs Exam: bilateral leg: non-tender, normal inspection, normal range of motion, no evidence of injury Knees Exam: bilateral knee: non-tender, normal inspection, normal range of mot ion, no evidence of injury Ankle Exam: right ankle: pain, swelling Foot Exam: bilateral foot: non-tender, normal inspection, normal range of motion, no evidence of injury Neuro/Tendon Exam: normal sensation, normal motor functions, responds to pain Mental Status Exam: alert, oriented x 3, cooperative Skin Exam: normal color, warm, dry SpO2 Interpretation: normal SpO2: 94 O2 Delivery: Room Air Ordered Tests: Active Orders 24 hr Category Date Time Status ANKLE (3 VIEWS) Stat Exams 06/12/24 21:59 Taken FOOT (MINIMUM 3 VIEWS) Stat Exams 06/12/24 21:59 Taken THORACOLUMBAR SPINE Stat Exams 06/12/24 21:49 Taken CBC W DIFF Stat Lab 06/12/24 22:27 Completed CMP Stat Lab 06/12/24 22:27 Completed Lactic Acid Stat Lab 06/12/24 22:20 Completed Medication Summary Discontinued Medications Generic Name Dose Route Start Last Admin Trade Name Freq PRN Reason Stop Dose Admin Hydrocodone Bitart/Acetaminophen 2 tab 06/13/24 02:11 06/13/24 02:15 Hydrocodone/Apap 5/325 1 Tab Tablet PO 06/13/24 02:12 2 tab STAT ONE Administration Hydrocodone Bitart/Acetaminophen Confirm 06/13/24 02:14 Hydrocodone/Apap 5/325 1 Tab Tablet Administered 06/13/24 02:15 Dose 2 tab .ROUTE .STK-MED ONE Droperidol 1.25 mg 06/12/24 23:14 06/12/24 23:25 Droperidol 5 Mg/2 Ml Vial IV 06/12/24 23:15 1.25 mg STAT ONE Administration Droperidol Confirm 06/12/24 23:21 Droperidol 5 Mg/2 Ml Vial Administered 06/12/24 23:22 Dose 5 mg .ROUTE .STK-MED ONE Orphenadrine Citrate 60 mg 06/13/24 00:25 06/13/24 01:17 Orphenadrine Citrate 60 Mg/2 Ml Vial IM 06/13/24 00:26 60 mg STAT ONE Administration Orphenadrine Citrate Confirm 06/13/24 01:12 Orphenadrine Citrate 60 Mg/2 Ml Vial Administered 06/13/24 01:13 Dose 60 mg .ROUTE .STK-MED ONE Lab/Rad Data: Laboratory Result Diagrams 06/12/24 22:27 06/12/24 22:27 Laboratory Results 06/12/24 06/12/24 06/12/24 Range/Units 22:27 22:27 22:20 WBC 11.8 H (4.23-9.07) x10^3/uL RBC 4.57 L (4.63-6.08) x10^6/uL Hgb 14.0 (13.7-17.5) g/dL Hct 40.1 (40.1-51.0) % MCV 87.7 (79.0-92.2) fL MCH 30.6 (25.7-32.2) pg MCHC 34.9 (32.3-36.5) g/dL RDW 12.5 (11.6-14.4) % Plt Count 200 (163-337) x10^3/uL MPV 9.9 (9.4-12.4) fL Gran % 61.4 (34.0-67.9) % Immature Gran % (Auto) 0.3 (0.001-0.429) % Nucleat RBC Rel Count 0.0 (0.00-0.2) % Eos # (Auto) 0.10 (0.04-0.54) x10^3/uL Immature Gran # (Auto) 0.03 (0.001-0.031) x10^3u/L Absolute Lymphs (auto) 2.71 (1.32-3.57) x10^3/uL Absolute Monos (auto) 1.69 H (0.30-0.82) x10^3/uL Absolute Nucleated RBC 0.00 (0.00-0.012) x10^3u/L Lymphocytes % 22.9 (21.8-53.1) % Monocytes % 14.3 H (5.3-12.2) % Eosinophils % 0.8 (0.8-7.0) % Basophils % 0.3 (0.2-1.2) % Absolute Granulocytes 7.26 H (1.78-5.38) x10^3/uL Basophils # 0.04 (0.01-0.08) x10^3/uL Sodium 134 L (135-145) mmol/L Potassium 4.2 (3.5-5.1) mmol/L Chloride 97 L (98-107) mmol/L Carbon Dioxide 24 (22-30) mmol/L Anion Gap 18.3 H (5-15) MEQ/L BUN 19 (9-20) mg/dL Creatinine 0.98 (0.66-1.25) mg/dL Estimated GFR 93.4 ML/MIN Glucose 108 H (74-106) mg/dL Lactic Acid 2.1 H (0.4-2.0) Calcium 9.3 (8.4-10.2) mg/dL Total Bilirubin 1.00 (0.2-1.3) mg/dL AST 143 H (17-59) U/L ALT 90 H (0-50) U/L Alkaline Phosphatase 92 (38-126) U/L Serum Total Protein 8.2 (6.3-8.2) g/dL Albumin 4.7 (3.5-5.0) g/dL - Progress Progress: pain not gone completely Progress Note: 06/13/24 01:21 labs significant for slight leukocytosis, mild hyponatremia imaging negative for acute fx of ankle, foot or thoracolumbar spine pt still complaining of pain despite droperidol injection and norflex injection unable to give opioid pain medication as pt is on naltrexone, unable to give toradol as pt has been taking indomethacin and risk of kidney injury pt requesting to go home despite continued pain pt informed me he is no longer taking naltrexone, has not taken for a year, will give norco 10mg now 06/13/24 02:50 pain improved slightly w/ norco 10mg plan for discharge home w/ PCP [place] recommend continued use of indomethacin and muscle relaxers prescribed at last visit will send home 2 norco 5mg tablets, can take every 6 hours starting at 8am recommend elevation of right foot/ankle above heart return to ED if: become unable to ambulate, pain becomes unbearable, lose pulse in right foot, right foot becomes discolored Counseled pt/family regarding: lab results, diagnosis, need for follow-up, rad results Medical Desision Making - Diagnostic Testing Diagnostic test were ordered, analyzed, and reviewed by me: Yes Radiological Interpretation: Interpreted by me, Reviewed by me - Risk of complications Low Risk: Low risk of morbidity from additional dx testing or treatment - Departure Departure Disposition: Home Clinical Impression: Right ankle pain Qualifiers: Chronicity: acute Qualified Code(s): M25.571 - Pain in right ankle and joints of right foot Condition: Stable Critical Care Time: No Referrals: [facility]OS[facility],'[facility] [Primary Care Provider] - Follow up/PCP as directed Additional Instructions: plan for discharge home w/ PCP [place] recommend continued use of indomethacin and muscle relaxers prescribed at last visit will send home 2 norco 5mg tablets, can take every 6 hours starting at 8am recommend elevation of right foot/ankle above heart return to ED if: become unable to ambulate, pain becomes unbearable, lose pulse in right foot, right foot becomes discolored
[2024-06-13] MEDS ORDERED: Norflex 60 MG/2 ML ONE (01:12)
[2024-06-13] MEDS: Norflex 60 MG/2 ML IM ONE (01:17)
[2024-06-13 02:13] VITALS: PULSE 97
[2024-06-13 02:14] VITALS: O2SAT 94
[2024-06-13] MEDS ORDERED: NORCO 5/325 MG ONE ×2 (02:14→02:54)
[2024-06-13] MEDS: NORCO 5/325 MG PO ONE ×2 (02:15→02:56)
[2024-06-13 03:01] VITALS: BP 152/101; RESP 27
--- NOTE | 2024-06-13 08:44 | XRAY ---
Indication: Pain. Comparison: None AP/lateral spine centered at thoracolumbar junction demonstrates osteopenia and minimal/mild multilevel degenerative spondylosis. Minimal T10-T12 vertebral height loss either remote fractures versus transitional segments. No other bony, articular, or soft tissue abnormalities.
--- NOTE | 2024-06-13 08:44 | XRAY ---
Indication: Pain. Comparison: None 3 view right ankle demonstrates osteopenia, small nonspecific fusion, and mild soft tissue swelling. No other bony, articular, or soft tissue abnormalities.
--- NOTE | 2024-06-13 08:44 | XRAY ---
Indication: Pain. Comparison: None 3 nonweightbearing views right foot demonstrates osteopenia, minimal midfoot degenerative changes, and small navicular accessory ossicle. No other bony, articular, or soft tissue abnormalities. Ankle reported separately.
== END 2024-06-13 03:05 | disposition home or self-care (01) ==
LOC: ED 17:34
DX: M25.571 Pain in right ankle and joints of right foot (principal); M54.50 Low back pain, unspecified; E78.5 Hyperlipidemia, unspecified; I10 Essential (primary) hypertension; Z79.899 Other long term (current) drug therapy
CPT/HCPCS: 36415; 72080; 73610; 73630; 80053; 83605; 85025; 96372; 96374; 99284; J2360; A9270-GY

== ENCOUNTER 2025-01-27 06:12 | Emergency (ER) | payer OTHER ==
[2025-01-27 06:30] VITALS: TEMP 96.9
--- NOTE | 2025-01-27 06:55 | ERPHSYRPT ---
<ARTURO RODRIGUEZ - Last Filed: 01/27/25 07:50> - History of Present Illness Source: patient Patient Subjective Stated Complaint: c/o bilat. knee pain Triage Nursing Assessment: patient brought to ED by family member with c/o bilat. knee pain. patient was having right knee pain, got an injection for a torn patellar tendon and torn cartilage, patient states he has been over compensating with his left leg and now has left knee pain. patient rates pain 6/10 at this time, gaited with a limp, vitals wnl, skin w/n/d, swelling present in right knee, patient is unable to fully extend left knee at this time, patient doesn't appear to be in any distress at this time. Hx Tetanus, Diphtheria Vaccination/Date Given: Yes Hx Influenza Vaccination/Date Given: Yes Hx Pneumococcal Vaccination/Date Given: No <DIAZ FITZGERALD - Last Filed: 02/01/25 22:26> - History of Present Illness Physician History: Patient reports a history of right knee pain as per triage note. He states he has been seen by Ortho locally and was told he had a tear in both tendon and his meniscus. He states he has been walking slightly differently since this injury. He had an injection 3 weeks ago with Ortho. He reports over the last 3 weeks he has been using a ladder at work and having to climb it with his left leg. He states now he is getting pain in the left knee Just below the patella. He states the area is painful and swollen. Has a history of gout and has been taking allopurinol. He is requesting evaluation and follow-up with Ortho. (DIAZ FITZGERALD) Allergies/Adverse Reactions: [id number] Reductase Inhibitor Allergy (Mild, Verified 01/27/25 06:30) Home Medications: Ascorbic Acid 500 mg [Vitamin C 500 MG] 500 mg PO DAILY 08/17/23 [History] Cholecalciferol (Vitamin D3) [Vitamin D3] 25 mcg PO DAILY 08/17/23 [History] Colchicine 0.6 mg PO DAILY 08/17/23 [History] Multivitamin 1 tab PO DAILY 08/17/23 [History] Omeprazole 40 mg PO BREAKFAST 08/17/23 [History] Prazosin HCl 1 mg PO HS 08/17/23 [History] Sildenafil Citrate [Viagra] 25 mg PO HS PRN PRN 08/17/23 [History] carvediloL [Carvedilol] 25 mg PO BID 06/10/24 [History] Travel Risk - International Travel Have you traveled outside of the country in past 3 weeks: No - Emerging Infectious Disease Are you exhibiting symptoms associated with any current EIDs: No <DIAZ FITZGERALD - Last Filed: 02/01/25 22:26> - Review of Systems Constitutional: No Fever, No Chills Eyes: No Symptoms Ears, Nose, & Throat: No Symptoms Respiratory: No Cough, No Dyspnea Cardiac: No Chest Pain, No Edema, No Syncope Abdominal/Gastrointestinal: No Abdominal Pain, No Nausea, No Vomiting, No Diarrhea Genitourinary Symptoms: No Dysuria Musculoskeletal: Arthralgias, No Back Pain, No Neck Pain Skin: No Rash Neurological: No Dizziness, No Focal Weakness, No Sensory Changes Psychological: No Symptoms Endocrine: No Symptoms All Other Systems: Reviewed and Negative <DIAZ FITZGERALD - Last Filed: 02/01/25 22:26> - Past Medical History Pertinent Past Medical History: Yes Neurological History: No Pertinent History ENT History: Cataracts Cardiac History: High Cholesterol, Hypertension Respiratory History: No Pertinent History Endocrine Medical History: No Pertinent History Musculoskeletal History: Fractures GI Medical History: Gallbladder Disease History: No Pertinent History Psycho-Social History: Depression, Other Male Reproductive Disorders: No Pertinent History Other Medical History: gout. rt wrist torn ligament and cartilage, bicep tears. PTSD - Past Surgical History Past Surgical History: Yes Neuro Surgical History: No Pertinent History Cardiac: No Pertinent History Respiratory: No Pertinent History Gastrointestinal: Cholecystectomy Genitourinary: No Pertinent History Musculoskeletal: Orthopedic Surgery Male Surgical History: Vasectomy Other Surgical History: right and left bicep, rt wrist surgery, cysts removal right ring finger - Social History Smoking Status: Never smoker Exposure to second hand smoke: No Drug Use: none - Social Determinants of Health Will the patient participate in the screening: Declined to provide <DIAZ FITZGERALD - Last Filed: 02/01/25 22:26> - Physical Exam General Appearance: no apparent distress SpO2 Interpretation: normal SpO2: 95 <DIAZ FITZGERALD - Last Filed: 02/01/25 22:26> - Nursing Vital Signs Nursing Vital Signs: Initial Vital Signs Temperature 96.9 F 01/27/25 06:21 Pulse Rate 97 H 01/27/25 06:21 Respiratory Rate 18 01/27/25 06:21 Blood Pressure 144/93 01/27/25 06:21 O2 Sat by Pulse Oximetry 98 01/27/25 06:21 Pain Scale Pain Intensity 6 - Physical Exam Comments: 01/27/25 06:52 Extremity exam. Patient has small effusion in the right knee. No discoloration. No redness or warmth. He has pain on full extension with discomfort over the anterior knee diffusely. Quads and patella. Tach The left knee is patient's more acute problem. No instability noted. He has some mild tenderness and swelling over the patellar tendon inferior to the kneecap. Distal itself is slightly tender. No instability noted. Neurovascular intact. Pain with range of motion. (DIAZ FITZGERALD) - Progress Progress: unchanged, pain not gone completely, re-examined Counseled pt/family regarding: diagnosis, need for follow-up, rad results <ARTURO RODRIUGEZ - Last Filed: 01/27/25 07:50> - Progress Discussed with Dr.: Other (Dr Harish beavers) <DIAZ FITZGERALD - Last Filed: 02/01/25 22:26> - Progress Progress Note: 01/27/25 07:50 I interpreted the patient's preliminary x-ray report of his left knee. I see no acute fracture or dislocation. (ARTURO RODRIGUEZ) 01/27/25 06:53 Patient with a history of right knee pain being followed by Ortho. Now 3 weeks of left knee pain noted after climbing stairs. Has tenderness over patellar tendon attachment. Has generalized anterior knee discomfort and limited range of motion with extension. 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 May apply ice pack to tender area 3 times a day for next 3 days. Follow-up with the [facility] orthopedic clinic for further evaluation management Forms: Work/School Release Form
[2025-01-27 07:27] VITALS: PULSE 94; RESP 18
--- NOTE | 2025-01-27 07:45 | XRAY ---
Indication: Pain. Comparison: None 3 view left knee demonstrates osteopenia and tiny patella spurring. No other bony, articular, or soft tissue abnormalities.
[2025-01-27 08:07] VITALS: BP 125/92
[2025-02-01 22:08] VITALS: O2SAT 95
== END 2025-01-27 08:30 | disposition home or self-care (01) ==
LOC: ED 06:12
DX: M25.562 Pain in left knee (principal); M25.561 Pain in right knee; I10 Essential (primary) hypertension; Z79.899 Other long term (current) drug therapy

== ENCOUNTER 2025-03-27 14:59 | Emergency (ER) | payer OTHER ==
[2025-03-27 15:53] VITALS: TEMP 98.2
--- NOTE | 2025-03-27 16:06 | ERPHSYRPT ---
- History of Present Illness Time Seen by Provider: 03/27/25 15:50 Source: patient Exam Limitations: no limitations Patient Subjective Stated Complaint: Pt states "I have gout and and two days ago my left knee started to swell and get red and I cannot bend it and it really hurts." Triage Nursing Assessment: Pt presented alert and oriented X 3, skin pwd. Pt able to stand with assistance, pt limps and his left knee is swollen, red, tender. Physician History: 49-year-old male presents to the emergency room with left knee pain patient reports he is got history of gout he is on allopurinol and colchicine he reports that he got a lot of swelling he reports for the past few weeks his has been in the [facility] picking up his grandkids and he has been eating poorly he has been having beer and red meat and this the cause of this flare denies any fevers or chills he is supposed to see Ortho now in ED for further eval Occurred: just prior to arrival Quality: constant Lower Extremities Pain: knee: left Modifying Factors: Improves With: nothing Associated Symptoms: none Allergies/Adverse Reactions: [id number] Reductase Inhibitor Allergy (Mild, Verified 01/27/25 06:30) Home Medications: Ascorbic Acid 500 mg [Vitamin C 500 MG] 500 mg PO DAILY 08/17/23 [History] Cholecalciferol (Vitamin D3) [Vitamin D3] 25 mcg PO DAILY 08/17/23 [History] Colchicine 0.6 mg PO DAILY 08/17/23 [History] Multivitamin 1 tab PO DAILY 08/17/23 [History] Omeprazole 40 mg PO BREAKFAST 08/17/23 [History] Prazosin HCl 1 mg PO HS 08/17/23 [History] Sildenafil Citrate [Viagra] 25 mg PO HS PRN PRN 08/17/23 [History] carvediloL [Carvedilol] 25 mg PO BID 06/10/24 [History] Allopurinol 300 mg [Zyloprim 300 mg] 500 mg PO DAILY 03/27/25 [History] Hx Tetanus, Diphtheria Vaccination/Date Given: Yes Hx Influenza Vaccination/Date Given: Yes Hx Pneumococcal Vaccination/Date Given: No Immunizations Up to Date: No Travel Risk - International Travel Have you traveled outside of the country in past 3 weeks: No - Emerging Infectious Disease Are you exhibiting symptoms associated with any current EIDs: No - Review of Systems Constitutional: No Fever, No Chills Eyes: No Symptoms Ears, Nose, & Throat: No Symptoms Respiratory: No Cough, No Dyspnea Cardiac: No Chest Pain, No Edema, No Syncope Abdominal/Gastrointestinal: No Abdominal Pain, No Nausea, No Vomiting, No Diarrhea Genitourinary Symptoms: No Dysuria Musculoskeletal: Joint Pain, Joint Swelling, No Back Pain, No Neck Pain Skin: No Rash Neurological: No Dizziness, No Focal Weakness, No Sensory Changes Psychological: No Symptoms Endocrine: No Symptoms All Other Systems: Reviewed and Negative - Past Medical History Pertinent Past Medical History: Yes Neurological History: No Pertinent History ENT History: Cataracts Cardiac History: High Cholesterol, Hypertension Respiratory History: No Pertinent History Endocrine Medical History: No Pertinent History Musculoskeletal History: Fractures GI Medical History: Gallbladder Disease History: No Pertinent History Psycho-Social History: Depression, Other Male Reproductive Disorders: No Pertinent History Other Medical History: gout. rt wrist torn ligament and cartilage, bicep tears. PTSD - Past Surgical History Past Surgical History: Yes Neuro Surgical History: No Pertinent History Cardiac: No Pertinent History Respiratory: No Pertinent History Gastrointestinal: Cholecystectomy Genitourinary: No Pertinent History Musculoskeletal: Orthopedic Surgery Male Surgical History: Vasectomy Other Surgical History: right and left bicep, rt wrist surgery, cysts removal right ring finger - Social History Smoking Status: Never smoker Exposure to second hand smoke: No Drug Use: none - Social Determinants of Health Will the patient participate in the screening: Declined to provide - Nursing Vital Signs Nursing Vital Signs: Initial Vital Signs Temperature 98.2 F 03/27/25 15:49 Pulse Rate 109 H 03/27/25 15:49 Respiratory Rate 20 03/27/25 15:49 Blood Pressure 138/105 03/27/25 15:49 O2 Sat by Pulse Oximetry 97 03/27/25 15:49 Pain Scale Pain Intensity 10 - Physical Exam General Appearance: alert Eyes, Ears, Nose, Throat Exam: moist mucous membranes Neck Exam: non-tender, supple Cardiovascular/Respiratory Exam: chest non-tender, normal breath sounds, regular rate/rhythm, no respiratory distress Gastrointestinal/Abdominal Exam: non-tender, guarding Back Exam: normal inspection, No vertebral tenderness Knees Exam: left knee: pain, soft tissue tenderness, swelling Neuro/Tendon Exam: normal sensation, normal motor functions Mental Status Exam: alert, oriented x 3, cooperative Skin Exam: normal color, warm, dry SpO2: 97 - Progress Progress Note: 03/27/25 16:05 Patient is on colchicine and allopurinol patient be given 60 mg of prednisone and prescribed 5 days of stress dose steroids advised patient follow-up with orthopedics - Departure Departure Disposition: Home Clinical Impression: Gout flare Qualifiers: Gout site: unspecified site Gout etiology: unspecified cause Qualified Code(s): M10.9 - Gout, unspecified Knee pain Qualifiers: Chronicity: unspecified Laterality: left Qualified Code(s): M25.562 - Pain in left knee Condition: Stable Critical Care Time: No Referrals: [facility] [Primary Care Provider, UNKNOWN] - Follow up/PCP as directed SHO TRAORE MD [ACTIVE STAFF, ORTHOPEDICS] - Follow up/PCP as directed Instructions: Knee Sprain (DC), Knee Pain (DC), Gout, Uric acid blood test, Low-purine diet Prescriptions: Prednisone 20 mg [Deltasone 20 mg] 60 mg PO DAILY 5 Days #15 tablet
[2025-03-27 16:25] VITALS: RESP 18
[2025-03-27] MEDS: DELTASONE 20 MG PO ONE (16:26)
[2025-03-27] MEDS ORDERED: DELTASONE 20 MG ONE (16:26)
[2025-03-27 16:41] VITALS: BP 150/101; PULSE 88; O2SAT 98
== END 2025-03-27 16:42 | disposition home or self-care (01) ==
LOC: ED 14:59
DX: M10.9 Gout, unspecified (principal); M25.562 Pain in left knee; I10 Essential (primary) hypertension; Z79.52 Long term (current) use of systemic steroids; Z79.899 Other long term (current) drug therapy